=== PATIENT | male | born 1945 | race Caucasian/White ===

== ENCOUNTER 2022-02-14 23:42 | Inpatient (IN) | payer MEDICARE, OTHER ==
[~2022-02-14] VITALS: Ht 175.3 cm; Wt 54.0 kg
[2022-02-15] MEDS ORDERED: BLOOD SUGAR DIAGNOSTIC 1 EACH STRIP IN ONE (00:30)
[2022-02-15] MEDS ORDERED: MAGNESIUM HYDROXIDE 30 ML UDC PO PRN (00:30)
[2022-02-15] MEDS ORDERED: ACETAMINOPHEN 325 MG TABLET PO PRN (00:30)
--- NOTE | 2022-02-15 00:54 | NUR ---
ADMITTED THIS 76 YEARS OLD MALE FROM [facility] PATIENT WAS PLACED ON 5150 HOLD DUE TO UNABLE TO CARE FROM HIM FOUND HIM DISORGANIZED, CONFUSED FULL OF HIS OWN URINE AND FECES PATIENT ABLE TO GO TO BATHROOM WITH STAND BY ASSIST. UNSTEADY GAIT GET AGITATED EASILY Patient continues talking about he needs his MsCONTINE, NICOTINE PATCH AND VICODIN PATIENT REFUSED TO SIGN THE CONSENT PAPER ADVISEMENT EXPLAIN AND SERVE TO THE PATIENT WITH HOSPITAL HAND BOOK WILL CONTINUES TO MONITORN THE PATIENT FOR SAFETY AND FALL.
[2022-02-15] MEDS ORDERED: HYDR-3972 PO (01:04)
[2022-02-15] MEDS ORDERED: DIVA-78 PO (01:04)
[2022-02-15] MEDS ORDERED: IBUP-1953 PO (01:04)
[2022-02-15] MEDS ORDERED: IBUPROFEN 600 MG TABLET PO PRN (02:00)
[2022-02-15] MEDS: LORAZEPAM 0.5 MG TABLET PO PRN (03:13)
--- NOTE | 2022-02-15 06:37 | NUR ---
CALL THE FAMILY BROTHER ALEX AND INFORM REGARDING THE PATIENT ADMIT IN [facility] AND PROVIDE THE HOSPITAL PHONE NUMBER.
[2022-02-15 08:00] VITALS: BP 102/60
[2022-02-15] MEDS: HYDROCODONE/APAP 5/325MG TABLET PO SCH ×3 (09:00→17:08)
--- NOTE | 2022-02-15 10:00 | NUR ---
FABY Initial Discharge Plan: Patient stated that he currently resides at [address] [place] [address]; ([phone]). Patient wants to return back home upon dc. FABY will work with the MD, treatment team, and pt to help coordinate appropriate discharge.
--- NOTE | 2022-02-15 10:01 | NUR ---
SW Admit Source: Patient placed on a 5150 hold for GD. Patient was found disorganized and confused. Patient stated that he currently resides at [address] [place] [address]; ([phone]). Patient wants to return back home upon dc.
[2022-02-15] MEDS: ENSURE ENLIVE 237 ML LIQUID (VANILLA) PO SCH ×2 (12:32→17:10)
[2022-02-15 16:00] VITALS: BP 112/64
[2022-02-15 20:00] VITALS: BP 100/58
[2022-02-15] MEDS: QUETIAPINE FUMARATE 25 MG TABLET PO SCH (21:50)
[2022-02-15] MEDS: ZOLPIDEM TARTRATE 5 MG TABLET PO PRN (21:50)
[2022-02-15] MEDS: MIRTAZAPINE 15 MG TABLET PO SCH (21:50)
[2022-02-15 23:35] LABS: THYROID STIMULATING HORMONE 2.209 uIU/mL (0.358-3.74)
--- NOTE | 2022-02-16 03:41 | NUR ---
RN NOTES: Alert / orientated X2 Easily aggitaed. He will ask for water urinal medication and he will want it NOW!. Unsteady when anbulatin. Went to bed 10 PM slept well. Noted he would get up x@ to go to the bathroom then back to bed
[2022-02-16 08:00] VITALS: BP 113/80
[2022-02-16] MEDS: ENSURE ENLIVE 237 ML LIQUID (VANILLA) PO SCH ×3 (08:05→16:03)
[2022-02-16] MEDS: HYDROCODONE/APAP 5/325MG TABLET PO SCH ×3 (08:36→16:04)
--- NOTE | 2022-02-16 09:04 | NUR ---
Social Work Note/Substance Abuse Intervention: Patient was provided with a brief substance abuse intervention and referred to [facility] ([phone]), [facility] ([phone]), and [facility] ([phone]) for being positive for opiates, per doctor notes.
--- NOTE | 2022-02-16 11:03 | NUR ---
RN NOTES MED RECON REPORTED THAT PATIENT PREVIOUSLY TAKES DIVALPROEX 500MG PO BID. INFORMED DR. CABRAL IF HE WOULD LIKE TO CONTINUE MEDICATION; PER MD, INQUIRE W/ PATIENT IF MEDICATION IS BEING TAKEN FOR SEIZURE OR FOR PSYCH. PER PATIENT, HE IS TAKING MEDICATION FOR SEIZURE. DR. CABRAL DEFERRED DECISION TO ACCOUNT RESOLUTION SPECIALIST. CALLED DR. BERGER AND INFORMED ABOUT MED RECON FOR DIVALPROEX; PER MD, OK FOR PATIENT TO CONTINUE TAKING. ORDER NOTED.
[2022-02-16 13:36] LABS: CHOLESTEROL 148 mg/dL (<200); HDL CHOLESTEROL 57 mg/dL (40-60); LDL 70 mg/dL (0-99); TRIGLYCERIDES 197 mg/dL (30-150)
[2022-02-16 13:51] LABS: ALANINE AMINOTRANSFERASE 10 U/L (12-78); ALBUMIN 2.6 g/dL (3.4-5.0); ALKALINE PHOSPHATASE 87 U/L (46-116); ASPARTATE AMINOTRANSFERASE 11 U/L (15-37); BILIRUBIN,TOTAL 0.2 mg/dL (0.2-1.0); CALCIUM, SERUM 8.8 mg/dL (8.5-10.1); CARBON DIOXIDE 25 mmol/L (21-32); CHLORIDE 107 mmol/L (98-107); CREATININE 1.7 mg/dL (0.6-1.3); GLUCOSE 151 mg/dL (74-106); SODIUM SERUM 138 mmol/L (136-145); TOTAL PROTEIN, SERUM 5.7 g/dL (6.4-8.2); UREA NITROGEN, BLOOD 47 mg/dL (7-18)
--- NOTE | 2022-02-16 15:25 | NUR ---
RN NOTES SPOKE W/ PATIENT'S BROTHER, ALEX, AND WAS INFORMED THAT PATIENT DOES NOT HAVE HIS UPPER/LOWER DENTURES; BELONGINGS LIST DID NOT ACCOUNT FOR THE DENTURES.
[2022-02-16 16:01] VITALS: BP 110/59
[2022-02-16] MEDS: DIVALPROEX SODIUM 500 MG TABLET.DR PO SCH (16:03)
[2022-02-16] MEDS: QUETIAPINE FUMARATE 25 MG TABLET PO SCH ×2 (16:04→21:10)
--- NOTE | 2022-02-16 17:38 | NUR ---
RN NOTES SPOKE W/ EVELINA ([phone]), PATIENT'S DAUGHTER, AND PROVIDED W/ UPDATE/PROGRESS ON PATIENT; CURRENTLY SPEAKING W/ PATIENT ON PORTABLE PHONE.
[2022-02-16 20:00] VITALS: BP 118/62
[2022-02-16] MEDS: MIRTAZAPINE 15 MG TABLET PO SCH (21:10)
--- NOTE | 2022-02-17 00:13 | NUR ---
RN NOTES:REFUSED SKIN ASSESSMENT PT. REFUSED SKIN ASSESSMENT AND PHOTOS TAKEN, PER PT. MY SKIN IS FINE ,WHY YOU ARE BOTHERING ME, ENCOURAGED X 3 , RISKS AND BENEFITS, BUT PT. SLOPINGLY REFUSED, PT. BEHAVIOR UNCOOPERTIVE ANXIOUS , PARANOID .WILL CONTINUE WITH CARE.
--- NOTE | 2022-02-17 05:34 | NUR ---
RN NOTES:REFUSED SKIN ASSESSMENT PT. REFUSED SKIN ASSESSMENT AND PHOTOS TAKEN, PER PT. MY SKIN IS FINE ,WHY YOU ARE BOTHERING ME, ENCOURAGED X 3 , RISKS AND BENEFITS, BUT PT. STRONGLY REFUSED, PT. BEHAVIOR UNCOOPERTIVE ANXIOUS , PARANOID .WILL CONTINUE WITH CARE.
[2022-02-17] MEDS ORDERED: Z GUARD REMEDY 4 OZ OINT TP PRN (07:30)
[2022-02-17 08:00] VITALS: BP 139/96
[2022-02-17] MEDS: HYDROCODONE/APAP 5/325MG TABLET PO SCH ×3 (09:00→18:03)
[2022-02-17] MEDS: ENSURE ENLIVE 237 ML LIQUID (VANILLA) PO SCH ×3 (10:43→16:41)
[2022-02-17] MEDS: QUETIAPINE FUMARATE 25 MG TABLET PO SCH ×3 (11:00→21:18)
[2022-02-17] MEDS: DIVALPROEX SODIUM 500 MG TABLET.DR PO SCH ×2 (11:00→16:41)
[2022-02-17] MEDS: Z GUARD REMEDY 4 OZ OINT TP SCH (11:27)
[2022-02-17 16:00] VITALS: BP 92/62
--- NOTE | 2022-02-17 16:51 | NUR ---
VITAL SIGNS RECHECKED BEFORE [facility]ENESSA. MEDS GIVEN.BP 106/63,HEART RATE 71,POX 95%.PT. ALERT AND ORIENTED.IN BED AND CHEERFUL AT THIS TIME.SIDE RAILS UP.
--- NOTE | 2022-02-17 18:21 | NUR ---
VERY NEEDY,MINIBUS DRIVER LIGHT FREQ.WHILE IN DAY RM. VOMITED UP AFTERNOON MEDS AFSINK,THEN ASKING FOR A SODA,DIFFICULT TO INSTRUCT ON NEEDS.
--- NOTE | 2022-02-17 19:30 | NUR ---
GPS RN NOTE, RECEIVED PATIENT AWAKE AND IN BED, NO S/S OR COMPLAINTS OF PAIN AT THIS TIME. PATIENT IS DISPLAYING NO S/S OF APPARENT DISTRESS AT THIS TIME. PATIENT BREATHING IS UNLABORED WITH EQUAL RISE AND FALL OF THE CHEST. PATIENT IS ALERT AND ORIENTED X 1-2 ON ROOM AIR WITH A SPO2 99%. PATIENT IS COMPLIANT WITH MEDICATIONS, ANXIOUS, PARANOID, UNCOOPERATIVE AT TIMES, NEEDS REDIRECTION. PATIENT DENIES SUICIDAL AND HOMICIDAL IDEATIONS AT THIS TIME. PATIENT ASSISTED WITH TURNING AND REPOSITIONING Q2HR AND PRN FOR COMFORT AND CIRCULATION. PATIENT HAS NO NEEDS AT THIS TIME. PATIENT EDUCATED ON THE USE OF THE CALL RANGEL. PATIENT BED SIDE RAILS UP X 2 FOR SAFETY. PATIENT BED IS LOCKED, LOW, WITH BED ALARM ON. WILL CONTINUE TO MONITOR THIS PATIENT Q15 MINUTES WITH THE HELP OF STAFF TO MAINTAIN SAFETY.
[2022-02-17 20:00] VITALS: BP 101/64
[2022-02-17] MEDS: MIRTAZAPINE 15 MG TABLET PO SCH (21:18)
[2022-02-17] MEDS: ZOLPIDEM TARTRATE 5 MG TABLET PO PRN (22:58)
--- NOTE | 2022-02-17 22:58 | NUR ---
GPS RN NOTE, PATIENT HAS A COMPLAINT OF NOT BEING ABLE TO SLEEP AND IS REQUESTING AMBIEN AT THIS TIME. PATIENT VITAL SIGNS ARE STABLE. GAVE AMBIEN 5MG PO HS PRN ORDERED. WILL REASSESS FOR INSOMNIA AND I WILL CONTINUE TO MONITOR THIS PATIENT WITH THE HELP OF STAFF.
[2022-02-18] MEDS: LORAZEPAM 0.5 MG TABLET PO PRN (00:52)
--- NOTE | 2022-02-18 00:53 | NUR ---
GPS RN NOTE, PATIENT HAS A COMPLAINT OF FEELING ANXIOUS AND IS REQUESTING ATIVAN AT THIS TIME. PATIENT VITAL SIGNS ARE STABLE. GAVE ATIVAN 1 MG PO Q6HR PRN ORDERED. WILL REASSESS FOR ANXIETY AND I WILL CONTINUE TO MONITOR THIS PATIENT WITH THE HELP OF STAFF.
[2022-02-18 08:00] VITALS: BP 104/59
[2022-02-18] MEDS: ENSURE ENLIVE 237 ML LIQUID (VANILLA) PO SCH ×3 (09:18→17:15)
[2022-02-18] MEDS: Z GUARD REMEDY 4 OZ OINT TP SCH (09:19)
[2022-02-18] MEDS: risperiDONE 1 MG TABLET PO SCH ×2 (09:21→17:16)
[2022-02-18] MEDS: DIVALPROEX SODIUM 500 MG TABLET.DR PO SCH ×2 (09:21→17:16)
[2022-02-18] MEDS: HYDROCODONE/APAP 5/325MG TABLET PO SCH ×4 (09:21→18:14)
--- NOTE | 2022-02-18 12:48 | NUR ---
GPS/TN PT REFUSED MEDS OFFERED X3
[2022-02-18 16:00] VITALS: BP 100/69
[2022-02-18 21:13] VITALS: BP 114/67
[2022-02-18] MEDS: MIRTAZAPINE 15 MG TABLET PO SCH (21:24)
--- NOTE | 2022-02-18 21:30 | NUR ---
GPS RN NOTES PATIENT ONLY AGREED TO ONE PICTURE FOR SKIN ASSESSMENT; PATIENT GETTING AGGRESSIVE; PATIENT YELLING AND RESTLESS; PATIENT VERBALIZED OKAY FOR ONE PICTURE ONLY; CHARGE NURSE MADE AWARE;
[2022-02-19] MEDS: ENSURE ENLIVE 237 ML LIQUID (VANILLA) PO SCH ×3 (07:54→16:45)
[2022-02-19 08:00] VITALS: BP 147/77
[2022-02-19] MEDS: DIVALPROEX SODIUM 500 MG TABLET.DR PO SCH ×2 (08:36→16:46)
[2022-02-19] MEDS: risperiDONE 1 MG TABLET PO SCH ×2 (08:36→16:47)
[2022-02-19] MEDS: Z GUARD REMEDY 4 OZ OINT TP SCH (09:32)
--- NOTE | 2022-02-19 09:32 | NUR ---
[facility]: SW contacted [facility] ([phone]) in request for pt's daughter who is concerned that pt's dentures have been lost at [place]. FABY spoke with lockstitch front edge tape sewer and was transferred to security who will be able to locate this. Security stated they do not have it. SW will notify patient's daughter Myriam ([phone]).
--- NOTE | 2022-02-19 09:37 | NUR ---
FABY Family Contact: AFBY contacted patient's daughter Myriam ([phone]) and notified that this business writer contacted [facility] and they were unable to located pt's dentures.
--- NOTE | 2022-02-19 10:06 | NUR ---
Court Hearing Notification: SW contacted patient's daughter Myriam ([phone]) to contact of patient's 1450 hearing today. She is aware.
--- NOTE | 2022-02-19 11:45 | NUR ---
Court Hearing: Patient's court hearing for 1440 was today and it was upheld for GD.
[2022-02-19 16:00] VITALS: BP 100/58
[2022-02-19] MEDS: HYDROCODONE/APAP 5/325MG TABLET PO PRN (19:48)
[2022-02-19 19:57] VITALS: BP 145/66
[2022-02-19] MEDS: MIRTAZAPINE 15 MG TABLET PO SCH (21:15)
[2022-02-20 08:00] VITALS: BP 111/65
[2022-02-20] MEDS: ENSURE ENLIVE 237 ML LIQUID (VANILLA) PO SCH ×3 (08:31→17:19)
[2022-02-20] MEDS: HYDROCODONE/APAP 5/325MG TABLET PO PRN (09:36)
[2022-02-20] MEDS: DIVALPROEX SODIUM 500 MG TABLET.DR PO SCH ×2 (09:37→17:00)
[2022-02-20] MEDS: risperiDONE 1 MG TABLET PO SCH ×2 (09:37→17:00)
[2022-02-20] MEDS: Z GUARD REMEDY 4 OZ OINT TP SCH (09:51)
[2022-02-20 16:00] VITALS: BP 147/72
--- NOTE | 2022-02-20 18:49 | NUR ---
very needy and freq. requesting needed items from rn.med compliant.pacing halls freq.
--- NOTE | 2022-02-20 19:30 | NUR ---
RN OPENING NOTE PATIENT WALKING AROUND THE ROOM, NOT IN ANY APPARENT DISTRESS. BREATHING EVEN AND UNLABORED. PATIENT IS CONFUSED AND PARANOID. WANT TO CALL 911. PATIENT REDIRECTABLE. SAFETY MEASURES IMPLEMENTED. BED LOCKED AND IN LOWEST POSITION, SIDE RAILS UP. WILL MONITOR PATIENT CLOSELY.
[2022-02-20 19:50] VITALS: BP 101/68
[2022-02-20] MEDS: LORAZEPAM 0.5 MG TABLET PO PRN (20:46)
--- NOTE | 2022-02-20 20:46 | NUR ---
ATIVAN GIVEN D/T INCREASED AGITATION AND COMBATIVENESS. PATIENT REFUSING TO GIVE UNIT PHONE AND STATES THAT IT IS HIS. PATIENT CONTINUES TO CALL 911. SECURITY CALLED FOR HELP.
[2022-02-20] MEDS: MIRTAZAPINE 15 MG TABLET PO SCH (21:44)
[2022-02-20] MEDS ORDERED: risperiDONE 1 MG TABLET PO SCH (22:00)
--- NOTE | 2022-02-20 22:23 | NUR ---
AMBIEN GIVEN TO HELP PATIENT GO TO SLEEP AND REST
[2022-02-20] MEDS: ZOLPIDEM TARTRATE 5 MG TABLET PO PRN (22:33)
[2022-02-21 08:00] VITALS: BP 94/59
[2022-02-21] MEDS: HYDROCODONE/APAP 5/325MG TABLET PO PRN (08:28)
[2022-02-21] MEDS: ENSURE ENLIVE 237 ML LIQUID (VANILLA) PO SCH ×3 (08:28→17:06)
[2022-02-21] MEDS: DIVALPROEX SODIUM 500 MG TABLET.DR PO SCH ×2 (08:29→17:06)
[2022-02-21] MEDS: risperiDONE 1 MG TABLET PO SCH ×2 (08:29→17:08)
--- NOTE | 2022-02-21 08:29 | NUR ---
RN-CO: NORCO GIVEN FOR C/O BACK PAIN 06/27.
--- NOTE | 2022-02-21 09:18 | NUR ---
WOUND CARE CONSULT: LIMITED ASSESSMENT DUE TO PT ALLOWING ONLY ASSESSMENT OF RT HEEL WHICH IS INTACT. CURRENT NAJMA SCORE IS 17. DISCUSSED SKIN PROTECTION WITH NURSING STAFF. MD IN AGREEMENT WITH PLAN OF CARE. WILL SEE PRN.
[2022-02-21] MEDS: Z GUARD REMEDY 4 OZ OINT TP SCH (09:34)
[2022-02-21] MEDS: LORAZEPAM 0.5 MG TABLET PO PRN (10:03)
--- NOTE | 2022-02-21 10:06 | NUR ---
RN-CO: ATIVAN 1 MG PO FOR RESTLESSNESS.
--- NOTE | 2022-02-21 15:09 | NUR ---
Individual Counseling: SW met with pt. bedside to run group regarding positive coping mechanisms. However, pt. is sleeping and not abusable to verbal cues. SW will continue to monitor patient's ability to participate in millieu.
[2022-02-21 16:00] VITALS: BP 121/77
--- NOTE | 2022-02-21 19:40 | NUR ---
GPS RN NOTES RECEIVED SITTING ON DOM CHAIR BY [facility],WITH NORMAL BREATHING PATTERN,A/O X1,CONFUSED,TALKING TO SELF AT TIMES,FOLLOW SIMPLE DIRECTIONS,REDIRECTABLE,WILL CONTINUE TO MONITOR BEHAVIOR.
[2022-02-21 20:00] VITALS: BP 118/62
[2022-02-21] MEDS: MIRTAZAPINE 15 MG TABLET PO SCH (21:28)
[2022-02-21] MEDS ORDERED: risperiDONE 1 MG TABLET PO SCH (22:00)
[2022-02-22] MEDS: ZOLPIDEM TARTRATE 5 MG TABLET PO PRN (01:28)
--- NOTE | 2022-02-22 01:28 | NUR ---
GPS RN NOTES STILL AWAKE,SITTING IN THE DINING ROOM,HAVING SNACKS.AMBEN 5MG PO GIVEN ORDERED FOR SLEEP.
--- NOTE | 2022-02-22 06:55 | NUR ---
GPS RN NOTES NO SIGNIFICANT CHANGE IN BEHAVIOR
[2022-02-22 08:00] VITALS: BP 96/62
[2022-02-22] MEDS: DIVALPROEX SODIUM 500 MG TABLET.DR PO SCH ×2 (08:15→16:58)
[2022-02-22] MEDS: ENSURE ENLIVE 237 ML LIQUID (VANILLA) PO SCH ×3 (08:15→16:58)
[2022-02-22] MEDS: risperiDONE 1 MG TABLET PO SCH ×3 (08:15→21:14)
[2022-02-22] MEDS: Z GUARD REMEDY 4 OZ OINT TP SCH (09:11)
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
[2022-02-22 16:00] VITALS: BP 112/60
[2022-02-22 20:00] VITALS: BP 132/75
[2022-02-22] MEDS: MIRTAZAPINE 15 MG TABLET PO SCH (21:14)
--- NOTE | 2022-02-23 07:30 | NUR ---
RN OPENING NOTES RECEIVED PATIENT ON BED RESTING AND A/O X2. ON ROOM AIR TOLERATING WELL. NO SOB NOTED. NOT IN DISTRESS. PATIENT IS CALM AT THIS TIME. WITH NO IV ACCESS. SAFETY MEASURES IN PLACED. BED ON LOWEST LOCKED POSITION, SIDE RAILS UP X2. WILL CONTINUE TO MONITOR.
[2022-02-23 08:00] VITALS: BP 129/78
--- NOTE | 2022-02-23 08:20 | NUR ---
SNF Referral: FABY sent clinicals to Dayan feng from [facility] ([phone]) for placement option. FABY sent H & P, progress notes, and medication list.
[2022-02-23] MEDS: DIVALPROEX SODIUM 500 MG TABLET.DR PO SCH ×4 (08:26→17:05)
[2022-02-23] MEDS: risperiDONE 1 MG TABLET PO SCH ×3 (08:26→21:32)
[2022-02-23] MEDS: Z GUARD REMEDY 4 OZ OINT TP SCH (08:27)
[2022-02-23] MEDS: ENSURE ENLIVE 237 ML LIQUID (VANILLA) PO SCH ×3 (08:27→17:06)
--- NOTE | 2022-02-23 11:16 | NUR ---
FABY Family Contact: SW contacted patient's daughter Myriam ([phone]) to notify that pt is accepted at [facility]. She was agreeable of this placement.
--- NOTE | 2022-02-23 11:16 | NUR ---
SNF Contact: SW received a call from Dayan feng from [facility] ([phone]) who stated pt is accepted.
[2022-02-23 15:59] VITALS: BP 110/68
--- NOTE | 2022-02-23 18:29 | NUR ---
RN CLOSING NOTES PATIENT ON BED RESTING AND A/O X2. ON ROOM AIR TOLERATING WELL. NO SOB NOTED. NOT IN DISTRESS. PATIENT IS CALM AT THIS TIME. WITH NO IV ACCESS. DUE MEDS GIVEN. ABLE TO MAKE NEEDS KNOWN. SAFETY MEASURES IN PLACED. BED ON LOWEST LOCKED POSITION, SIDE RAILS UP X2. WILL ENDORSE TO NEXT SHIFT FOR ERNESTINE.
[2022-02-23 20:00] VITALS: BP 106/66
[2022-02-23] MEDS: MIRTAZAPINE 15 MG TABLET PO SCH (21:32)
[2022-02-24] MEDS: HYDROCODONE/APAP 5/325MG TABLET PO PRN (01:12)
--- NOTE | 2022-02-24 01:15 | NUR ---
GPS RN NOTE, PATIENT HAS A COMPLAINT OF CHRONIC UPPER AND LOWER BACK PAIN AT 4 OUT 10 ON THE PAIN SCALE AND IS REQUESTING NORCO AT THIS TIME. PATIENT VITAL SIGNS ARE STABLE. GAVE NORCO 5-325 1 TAB PO Q8HR PRN ORDERED. WILL REASSESS PAIN AND I WILL CONTINUE TO MONITOR THIS PATIENT WITH THE HELP OF STAFF.
[2022-02-24] MEDS: MAG HYDROX/AL HYDROX/SIMETH 30 ML UDC PO PRN (01:35)
--- NOTE | 2022-02-24 01:35 | NUR ---
GPS RN NOTE, PATIENT HAS A COMPLAINT OF INDIGESTION AND IS REQUESTING MAALOX AT THIS TIME. PATIENT VITAL SIGNS ARE STABLE. GAVE MAALOX 30ML UNIT DOSE PO Q4HR PRN ORDERED. WILL REASSESS FOR INDIGESTION AND I WILL CONTINUE TO MONITOR THIS PATIENT WITH THE HELP OF STAFF.
[2022-02-24 08:00] VITALS: BP 112/64
[2022-02-24] MEDS: risperiDONE 1 MG TABLET PO SCH ×3 (08:01→21:16)
[2022-02-24] MEDS: DIVALPROEX SODIUM 500 MG TABLET.DR PO SCH ×3 (08:01→16:25)
[2022-02-24] MEDS: ENSURE ENLIVE 237 ML LIQUID (VANILLA) PO SCH ×3 (08:02→17:13)
[2022-02-24] MEDS: Z GUARD REMEDY 4 OZ OINT TP SCH (09:24)
[2022-02-24 16:00] VITALS: BP 116/74
[2022-02-24 20:00] VITALS: BP 124/69
[2022-02-24] MEDS: MIRTAZAPINE 15 MG TABLET PO SCH (21:16)
[2022-02-25] MEDS: HYDROCODONE/APAP 5/325MG TABLET PO PRN ×2 (00:57→15:34)
[2022-02-25 08:00] VITALS: BP 103/55
[2022-02-25] MEDS: ENSURE ENLIVE 237 ML LIQUID (VANILLA) PO SCH ×3 (08:08→16:05)
[2022-02-25] MEDS: Z GUARD REMEDY 4 OZ OINT TP SCH (08:09)
[2022-02-25] MEDS: DIVALPROEX SODIUM 500 MG TABLET.DR PO SCH ×3 (08:09→16:02)
[2022-02-25] MEDS: risperiDONE 1 MG TABLET PO SCH ×3 (08:10→21:46)
[2022-02-25 08:11] LABS: EOSINOPHILS % (AUTO) 5.5 % (0.0-6.0); HEMATOCRIT 29 % (39-51); HEMOGLOBIN 9.3 g/dL (13.5-17.5); LYMPHOCYTES # (AUTO) 0.8 K/uL (0.8-4.8); MEAN CORPUSCULAR HGB CONC 32 g/dl (31.0-36.0); MEAN CORPUSCULAR VOLUME 73 fL (80-96); MONOCYTES # (AUTO) 0.3 K/uL (0.1-1.30); MONOCYTES % (AUTO) 11.4 % (2.0-12.0); NEUTROPHILS # (AUTO) 1.4 K/uL (1.8-8.9); NEUTROPHILS % (AUTO) 53.1 % (43.0-81.0); PLATELET COUNT (AUTO) 138 K/uL (150-450); RED BLOOD CELL COUNT(AUTO) 3.93 MIL/uL (4.5-6.0); WHITE BLOOD COUNT (AUTO) 2.7 K/uL (4.3-11.0)
[2022-02-25 08:45] LABS: CALCIUM, SERUM 8.9 mg/dL (8.5-10.1); CARBON DIOXIDE 27 mmol/L (21-32); CHLORIDE 107 mmol/L (98-107); CREATININE 1.3 mg/dL (0.6-1.3); GLUCOSE 79 mg/dL (74-106); MAGNESIUM 2.4 mg/dL (1.8-2.4); POTASSIUM 4.9 mmol/L (3.5-5.1); SODIUM SERUM 141 mmol/L (136-145); UREA NITROGEN, BLOOD 40 mg/dL (7-18)
[2022-02-25 09:57] LABS: EOSINOPHILS % (MANUAL) 8 % (0-4); LYMPHOCYTES % (MANUAL) 25 % (16-48); MONOCYTES % (MANUAL) 14 % (0-11.0); NEUTROPHILS % (MANUAL) 53 (42-76)
[2022-02-25 11:28] LABS: IRON, SERUM 33 ug/dl (50-175); TOTAL IRON BINDING CAPACITY 360 ug/dl (250-450)
--- NOTE | 2022-02-25 12:56 | NUR ---
RN-CO: NOTIFIED STAFF AND PEER TUTOR AND WILL PASS THE REPORT TO UPCOMING SHIFT , THAT PATIENT IS NPO AFTER MIDNIGHT FOR COMPLETE US.
--- NOTE | 2022-02-25 12:57 | NUR ---
RN-CO: PT REFUSED TO PROVIDE STOOL SPECIMEN.
[2022-02-25 16:00] VITALS: BP 128/65
[2022-02-25 20:18] VITALS: BP 110/69
[2022-02-25] MEDS: MIRTAZAPINE 15 MG TABLET PO SCH (21:43)
[2022-02-26] MEDS: MAG HYDROX/AL HYDROX/SIMETH 30 ML UDC PO PRN (00:55)
--- NOTE | 2022-02-26 07:07 | NUR ---
GPS RN NOTE: LEFT RIB CAGE AREA PAIN PATIENT C/O PAIN 310 LEFT RIB CAGE AREA, NO BRUISING NOTED. PRN TYLENOL 650 MG PO ADMINISTERED PER PATIENT REQUEST
[2022-02-26 08:00] VITALS: BP 102/64
[2022-02-26] MEDS: ENSURE ENLIVE 237 ML LIQUID (VANILLA) PO SCH ×3 (08:02→16:10)
[2022-02-26 08:06] LABS: IMMUNOGLOBULIN A, SERUM 160 mg/dL (61-437); IMMUNOGLOBULIN G, SERUM 1077 mg/dL (603-1613); IMMUNOGLOBULIN M, SERUM 46 mg/dL (15-143)
[2022-02-26] MEDS: Z GUARD REMEDY 4 OZ OINT TP SCH (08:59)
[2022-02-26] MEDS: DIVALPROEX SODIUM 500 MG TABLET.DR PO SCH ×3 (08:59→16:10)
[2022-02-26] MEDS: risperiDONE 1 MG TABLET PO SCH ×2 (08:59→16:10)
--- NOTE | 2022-02-26 09:27 | NUR ---
FABY Note: FABY spoke with patient regards to discharge plan. FABY notified that he is accepted at [facility]. He stated that he does not want to go to a nursing facility and wants to go back home.
--- NOTE | 2022-02-26 09:28 | NUR ---
FABY Family Contact: SW spoke with patient's daughter Myriam ([phone]) and stated that pt does not want to go to a nursing facility and wants to go back home. Daughter reported that she will speak to pt and see if he is agreeable of going to a nursing facility.
--- NOTE | 2022-02-26 09:51 | NUR ---
FABY Family Contact: FABY spoke with patient's daughter Myriam ([phone]) who stated she was unable to convince pt to go to a nursing facility. She stated to proceed with discharge back home.
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
--- NOTE | 2022-02-26 10:55 | NUR ---
FABY Coordination of Care: Patient referred for intake evaluation (psychiatry) at [facility] located at [address] [place] [address]: ([phone]) coordinated by officer of the day on March 05 at 11:30AM via telehealth.
--- NOTE | 2022-02-26 12:22 | NUR ---
GPS RN NOTE: T.O. ORDER FROM MARY KAY WILDE TRANSFER PT TO [facility] WITH DX IRON DEFICIENCY ANEMIA. NOTIFIED DR CABRAL PER DR. CABRAL T.O. ORDER DC HOLD CONTINUE WITH PSYCH MEDICATIONS DC PRN.
[2022-02-26 12:30] LABS: *ANA ANTI-CENTROMERE B AB <0.2 AI (0.0-0.9); *ANA ANTI-DNA(DS) AB, QN 2 IU/mL (0-9); *ANA ANTI-JO-1 <0.2 AI (0.0-0.9); *ANA ANTICHROMATIN ANTIBODY <0.2 AI (0.0-0.9); *ANA RNP ANTIBODIES <0.2 AI (0.0-0.9); *ANA SJOGREN'S ANTI-SS-A <0.2 AI (0.0-0.9); *ANA SJOGREN'S ANTI-SS-B <0.2 AI (0.0-0.9); *ANAANTI-SCLERODERMA-70 AB <0.2 AI (0.0-0.9); *ANASMITH AB <0.2 AI (0.0-0.9)
--- NOTE | 2022-02-26 13:24 | NUR ---
Transfer Note: Patient will transfer to medical floor due to Iron Deficiency Anemia. Dr. Vasquez was notified and hold will be discontinued. Patient will be discharged back home located at [address] [place] [address]; ([phone]) when stable. Patients daughter Myriam ([phone]) is involved. Patient referred for intake evaluation (psychiatry) at [facility] located at [address] [place] [address]: ([phone]) coordinated by officer of the day on March 05 at 11:30AM via telehealth.
[2022-02-26] MEDS ORDERED: SOD FERRIC GLUC 125 MG in IV NS 0.9% 100 ML IV SCH ×2 (14:00→20:30)
[2022-02-26 14:07] LABS: *SPE A/G RATIO 1.2 (0.7-1.7); *SPE ALPHA-1-GLOBULIN 0.2 g/dL (0.0-0.4); *SPE ALPHA-2-GLOBULIN 0.5 g/dL (0.4-1.0); *SPE BETA GLOBULIN 0.8 g/dL (0.7-1.3); *SPE M-SPIKE Not Observed g/dL (Not Observed)
[2022-02-26 16:00] VITALS: BP 115/62
--- NOTE | 2022-02-26 18:07 | NUR ---
PT DISCHARGED TO [facility] UNIT. PT WILL BE ADMITTED TO [facility] WITH DX OF IRON DEFICIENCY ANEMIA. PT ALERT AND ORIENTED X2. CALM AND COOPERATIVE. VSS. DENIES PAIN. DENIES SI/HI AT THIS TIME. DENIES A/V HALLUCINATIONS AT THIS TIME. NO ACUTE DISTRESS NOTED AT THIS TIME. DAUGHTER (EVELINA) CONTACTED TO INFORM OF TRANSFER. ALL BELONGINGS SIGNED AND RETURNED. MD AND PSYCHIATRIST AWARE. HOLD DC'd.
[2022-02-26] MEDS ORDERED: MIRT-90 PO (19:19)
[2022-02-26] MEDS ORDERED: MAG30ORA PO (19:19)
[2022-02-26] MEDS ORDERED: SOD62.5V IV (19:19)
[2022-02-26] MEDS ORDERED: ACET-868 PO (19:19)
[2022-02-26] MEDS ORDERED: ALLA266C2 TP ×2 (19:19)
[2022-02-26] MEDS ORDERED: RISP0.2515 PO ×2 (19:19)
[2022-02-26] MEDS ORDERED: MAGN400O6 PO (19:19)
[2022-02-26] MEDS ORDERED: LACT-246 PO (19:19)
[2022-02-26] MEDS ORDERED: ONDANSETRON HCL/PF 4 MG/2 ML VIAL IVP PRN (20:30)
[2022-02-26] MEDS ORDERED: ACETAMINOPHEN 325 MG TABLET PO PRN (20:30)
[2022-02-26] MEDS ORDERED: Z GUARD REMEDY 4 OZ OINT TP PRN (20:30)
[2022-02-26] MEDS ORDERED: MAGNESIUM HYDROXIDE 30 ML UDC PO PRN (20:30)
[2022-02-26] MEDS ORDERED: HYDROCODONE/APAP 5/325MG TABLET PO PRN (20:30)
[2022-02-27] MEDS ORDERED: DIVALPROEX SODIUM 500 MG TABLET.DR PO SCH (09:00)
[2022-03-01] MEDS ORDERED: FERR325T23 PO (10:28)
== END 2022-02-26 18:08 | disposition short-term general hospital (02) | DRG 885 ==
LOC: GPS 23:42
PROVIDERS: ADMIT Psychiatry & Neurology Psychiatry; ATTEND Internal Medicine
DX: F29 Unspecified psychosis not due to a substance or known physiological condition (principal); E43 Unspecified severe protein-calorie malnutrition; N17.9 Acute kidney failure, unspecified; N18.9 Chronic kidney disease, unspecified; D61.818 Other pancytopenia; G93.40 Encephalopathy, unspecified; R64 Cachexia; Z68.1 Body mass index [BMI] 19.9 or less, adult; F03.91 Unspecified dementia, unspecified severity, with behavioral disturbance; F41.9 Anxiety disorder, unspecified; D50.9 Iron deficiency anemia, unspecified; D72.821 Monocytosis (symptomatic); E88.09 Other disorders of plasma-protein metabolism, not elsewhere classified; F32.A Depression, unspecified; G40.909 Epilepsy, unspecified, not intractable, without status epilepticus; G89.4 Chronic pain syndrome; Z87.442 Personal history of urinary calculi; M19.90 Unspecified osteoarthritis, unspecified site; Z73.6 Limitation of activities due to disability; M62.81 Muscle weakness (generalized); D69.6 Thrombocytopenia, unspecified; F42.9 Obsessive-compulsive disorder, unspecified
CPT/HCPCS: 36415; 70450-TC; 76700-TC; 80048-TC; 80053-TC; 80061-TC; 80164-TC; 82550-TC; 82607-TC; 82728-TC; 82784; 82962-TC; 83540-TC; 83735-TC; 84155; 84165; 84443-TC; 85025-TC; 86225; 86235; 86334; 86431-TC; 86706; 86803; 87081-TC; 87340; 97116-TC; 97530-TC

== ENCOUNTER 2022-02-26 18:28 | Inpatient (IN) | payer MEDICARE, OTHER ==
[~2022-02-26] VITALS: Ht 172.7 cm; Wt 59.0 kg
[~2022-02-26 18:28] MED LIST: DIVA-78 PO; HYDR-3972 PO; IBUP-1953 PO
[2022-02-26] MEDS ORDERED: ACET-868 PO (19:19)
[2022-02-26] MEDS ORDERED: MAGN400O6 PO (19:19)
[2022-02-26] MEDS ORDERED: LACT-246 PO (19:19)
[2022-02-26] MEDS ORDERED: RISP0.2515 PO ×2 (19:19)
[2022-02-26] MEDS ORDERED: SOD62.5V IV (19:19)
[2022-02-26] MEDS ORDERED: ALLA266C2 TP ×2 (19:19)
[2022-02-26] MEDS ORDERED: MIRT-90 PO (19:19)
[2022-02-26] MEDS ORDERED: MAG30ORA PO (19:19)
--- NOTE | 2022-02-26 19:45 | NUR ---
MS RN NOTES PATIENT ON UNIT, PER PREVIOUS SHIFT ARRIVED 1835 FROM GPS UNIT; PATIENT A/OX2, RE-DIRECTABLE; BREATHING EVEN AND UNLABORED; NO SOB NOTED; TOLERATING ROOM AIR; NO IV ACCESS AT THIS TIME; UNABLE TO OBTAIN MUCH INFORMATION D/T PATIENT MENTAL STATUS/PSYCHOSIS; PATIENT UNCOOPERATIVE AND TENDS TO YELL WHEN UPSET; CHARGE NURSE AWARE; PATIENT ORIENTED TO STAFF AND TO UNIT; SAFETY PRECAUTIONS IN PLACE; CALL LIGHT WITHIN REACH; WILL CONT PLAN OF CARE
--- NOTE | 2022-02-26 19:52 | NUR ---
MS RN NOTES PATIENT REFUSING CARE. PATIENT DOES NOT WANT IV ACCESS, PATIENT EDUCATED ON COMPLIANCE THROUGHOUT HOSPITALIZATION, PATIENT STILL REFUSING; PATIENT ALSO REFUSING ID BAND TO BE PLACED ON WRIST AND/OR BED; PATIENT ANGRY AND UNCOOPERATIVE AND ANGRY; YELLING AT STAFF; THROWING URINAL AT INSTRUMENT PERSON; REFUSING VITALS TO BE TAKEN; PATIENT UNABLE TO PROVIDE MEDICAL HISTORY, HISTORY TAKEN FROM PREVIOUS CHART; PATIENT PREVIOUS GPS PATIENT; CHARGE NURSE MADE AWARE; WILL CONT TO MONITOR
[2022-02-26 20:00] VITALS: BP 99/49
--- NOTE | 2022-02-26 20:21 | NUR ---
MS RN NOTES AWAITING ADMITTING ORDERS FROM MD. CHARGE NURSE AWARE WILL CALL PSYCH UNIT TO TRANSFER ALL MEDICATIONS PER MD;
[2022-02-26] MEDS ORDERED: ACETAMINOPHEN 325 MG TABLET PO PRN (20:30)
[2022-02-26] MEDS ORDERED: ONDANSETRON HCL/PF 4 MG/2 ML VIAL IVP PRN (20:30)
[2022-02-26] MEDS ORDERED: MAGNESIUM HYDROXIDE 30 ML UDC PO PRN (20:30)
[2022-02-26] MEDS ORDERED: Z GUARD REMEDY 4 OZ OINT TP PRN (20:30)
--- NOTE | 2022-02-26 20:31 | NUR ---
MS RN NOTES PER CHARGE NURSE FAX MEDICATION SHEET TO PHARMACY; SPOKE WITH PHARMACY, THEY RECEIVED FAX, WILL INPUT ORDERS. PER PHARMACY, FERRLICIT WILL HAVE TO BE STARTED TOMORROW; CHARGE NURSE MADE AWARE; WILL CONT TO MONITOR
[2022-02-26] MEDS ORDERED: SOD FERRIC GLUC 125 MG in IV NS 0.9% 100 ML IV SCH (21:00)
--- NOTE | 2022-02-26 21:37 | NUR ---
MS RN NOTES SPOKE WITH BROTHER (ALEX) [phone], REGARDING PATIENT BEING TRANSFERRED TO ANOTHER UNIT IN THE HOSPITAL, BROTHER IS AWARE AND WAS INFORMED EARLIER THIS EVENING; BROTHER INFORMED ABOUT PATIENT CURRENT BEHAVIOR OF BEING UNCOOPERATIVE; BROTHER WILL SPEAK TO PATIENT IN AM; SPOKE WITH PATIENT REGARDING BROTHER, PATIENT CALMED DOWN A BIT BUT STILL REFUSING CARE AND MEDICATION; PATIENT DOES NOT WANT IV ACCESS; PATIENT YELLED AND STATED HE WANTS TO GO TO SLEEP; CHARGE NURSE MADE AWARE WILL CONT TO MONITOR;
[2022-02-26] MEDS: MIRTAZAPINE 15 MG TABLET PO SCH (21:40)
[2022-02-26] MEDS: risperiDONE 1 MG TABLET PO SCH (21:40)
--- NOTE | 2022-02-26 23:45 | NUR ---
MS RN NOTES ENDORSED PATIENT TO [facility].
[2022-02-27] MEDS: HYDROCODONE/APAP 5/325MG TABLET PO PRN ×2 (00:48→23:14)
--- NOTE | 2022-02-27 07:30 | NUR ---
MS RN OPENING NOTES RECEIVED PATIENT IN BED AWAKE, A/OX2, DISTRACTED DURING CONVERSATION. ON RA WITH NO S/SX OF RESP DISTRESS NOTED. NO PAIN VERBALIZED. PATIENT HAS NO IV ACCESS AT THIS TIME. CONTINUING TO REFUSE AND BECOMES AGITATED WHEN ASKED, WILL ATTEMPT AGAIN AT A LATER TIME. MD WAS NOTIFIED OF PATIENTS REFUSAL. SAFETY PRECAUTIONS IN PLACE: BED IN LOWEST POSITION, WHEELS LOCKED, SIDE RAILS UP X2, CALL LIGHT WITHIN REACH. WILL CONTINUE PLAN OF CARE
--- NOTE | 2022-02-27 07:30 | NUR ---
RN NOTES PATIENT REFUSED AM LAB DRAW. WILL ATTEMPT AGAIN AT A LATER TIME.
[2022-02-27 08:00] VITALS: BP 119/60
[2022-02-27] MEDS ORDERED: DIVALPROEX SODIUM 500 MG TABLET.DR PO SCH (09:00)
[2022-02-27] MEDS: risperiDONE 1 MG TABLET PO SCH ×3 (09:22→21:18)
[2022-02-27] MEDS: DIVALPROEX SODIUM 500 MG TABLET.DR PO SCH ×3 (09:55→17:55)
[2022-02-27] MEDS ORDERED: OLANZAPINE 10 MG VIAL IM PRN (10:00)
[2022-02-27] MEDS ORDERED: LORAZEPAM 1 MG TABLET PO PRN (10:00)
--- NOTE | 2022-02-27 11:01 | NUR ---
Transfer Note: Patient will transfer to medical floor due to Iron Deficiency Anemia. Dr. Vasquez was notified and hold will be discontinued. Patient will be discharged back home located at [address] [place] [address]; ([phone]) when stable. Patients daughter Myriam ([phone]) is involved. Patient referred for intake evaluation (psychiatry) at [facility] located at [address] [place] [address]: ([phone]) coordinated by officer of the day on March 05 at 11:30AM via telehealth.
--- NOTE | 2022-02-27 12:00 | NUR ---
RN NOTES PATIENT IS STILL REFUSING TO HAVE BLOOD DRAWN FOR LAB.
--- NOTE | 2022-02-27 13:15 | NUR ---
RN NOTES URINE SAMPLE COLLECTED. LAB CALLED FOR TIME STUDY CLERK.
--- NOTE | 2022-02-27 13:20 | NUR ---
RN NOTES PATIENT IS STILL REFUSING IV ACCESS. HE STATES, "THERE IS NO NEED FOR ME TO HAVE AN IV, I DON'T WANT IT."
[2022-02-27] MEDS: SOD FERRIC GLUC 125 MG in IV NS 0.9% 100 ML IV SCH ×2 (14:00→17:52)
[2022-02-27 16:10] LABS: BILIRUBIN,URINE NEGATIVE (NEGATIVE); COLOR,URINE YELLOW (YELLOW); LEUKOCYTE ESTERASE ,URINE NEGATIVE (NEGATIVE); NITRITE, URINE NEGATIVE (NEGATIVE); PH,URINE 7.5 (5.0-8.0); PROTEIN,URINE NEGATIVE (NEGATIVE); UGLUCOSE NEGATIVE (NEGATIVE); UROBILINOGEN,URINE 0.2 EU/dL (0.2)
[2022-02-27 16:36] LABS: EOSINOPHILS % (AUTO) 2.8 % (0.0-6.0); HEMATOCRIT 28 % (39-51); HEMOGLOBIN 8.8 g/dL (13.5-17.5); LYMPHOCYTES # (AUTO) 0.4 K/uL (0.8-4.8); LYMPHOCYTES % (AUTO) 17.9 % (20.0-44.0); MEAN CORPUSCULAR HGB CONC 32 g/dl (31.0-36.0); MEAN CORPUSCULAR VOLUME 74 fL (80-96); MONOCYTES # (AUTO) 0.3 K/uL (0.1-1.30); MONOCYTES % (AUTO) 12.1 % (2.0-12.0); NEUTROPHILS # (AUTO) 1.6 K/uL (1.8-8.9); NEUTROPHILS % (AUTO) 66.2 % (43.0-81.0); PLATELET COUNT (AUTO) 137 K/uL (150-450); RED BLOOD CELL COUNT(AUTO) 3.75 MIL/uL (4.5-6.0); WHITE BLOOD COUNT (AUTO) 2.4 K/uL (4.3-11.0)
[2022-02-27 16:49] LABS: CALCIUM, SERUM 8.5 mg/dL (8.5-10.1); CREATININE 1.3 mg/dL (0.6-1.3); MAGNESIUM 2.7 mg/dL (1.8-2.4); PHOSPHORUS 4.3 mg/dL (2.5-4.9); POTASSIUM 4.8 mmol/L (3.5-5.1)
--- NOTE | 2022-02-27 17:00 | NUR ---
RN NOTES LABS DRAWN
[2022-02-27 17:40] LABS: BAND % (MANUAL) 3 % (0.0-5.0); EOSINOPHILS % (MANUAL) 1 % (0-4); LYMPHOCYTES % (MANUAL) 20 % (16-48); MONOCYTES % (MANUAL) 13 % (0-11.0); NEUTROPHILS % (MANUAL) 63 (42-76)
--- NOTE | 2022-02-27 18:00 | NUR ---
RN NOTES IV ACCESS L FA G#20, INTACT AND FLUSHING WELL
--- NOTE | 2022-02-27 18:45 | NUR ---
RN CLOSING NOTES PATIENT IN BED, CALM AND COOPERATIVE. FORGETFUL AT TIMES AND NEEDS REDIRECTING. WAS ABLE TO ESTABLISH IV ACCESS L FA G#20, INTACT AND PATENT. GAVE FIRST DOSE OF FERRELECIT 125 MG IV. PATIENT TOOK ALL PO MEDICATIONS TODAY. SAFETY MEASURES IN PLACE WITH CALL LIGHT WITHIN REACH AND BED ALARM ON. WILL ENDORSE TO CHEST PAINTING LEADER NURSE FOR ERNESTINE
--- NOTE | 2022-02-27 19:42 | NUR ---
RN OPENING NOTES PATIENT IN BED, CALM AND COOPERATIVE. FORGETFUL AT TIMES AND NEEDS REDIRECTING. WAS ABLE TO ESTABLISH IV ACCESS LFA G#20, INTACT AND PATENT. FIRST DOSE OF FERRELECIT 125 MG IV GIVEN DURING DAY SHIFT. NEED TO COLLECT STOOL SAMPLE WILL TRY TONIGHT.SAFETY MEASURES IN PLACE WITH CALL LIGHT WITHIN REACH AND BED ALARM ON. WILL CONTINUE TO MONITOR.
[2022-02-27 20:00] VITALS: BP 166/85
--- NOTE | 2022-02-27 20:30 | NUR ---
MS RN NOTES STOOL SAMPLE COLLECTED PLACED IN [facility] LAB CALLED FOR CONCRETE BUSTER OPERATOR.
[2022-02-27] MEDS: MIRTAZAPINE 15 MG TABLET PO SCH (21:18)
--- NOTE | 2022-02-27 22:11 | NUR ---
MS RN NOTES PT TOOK ALL SCHEDULED MEDICATIONS ORDERED. TOLERATED WELL. CURRENTLY SPEAKING ON THE PHONE WITH HIS SISTER. PT CALM IN A GOOD MOOD. PER PT " I WANT MY NORCO BUT NOT RIGHT NOW I DON'T WANT TO OD CAN YOU GIVE IT TO ME AFTER AN HOUR FROM THE TIME YOU GAVE ME THE OTHER PILLS?" WILL CONTINUE TO MONITOR PT AND PROVIDE PAIN MEDICATION IF REQUIRED STILL IN A HOUR.
--- NOTE | 2022-02-27 23:19 | NUR ---
MS RN NOTES PT HAVING GENERALIZED PAIN PRN NORCO GIVEN AND TOLERATED WELL. ALL NEEDS MET AT THIS TIME. WILL CONTINUE TO MONITOR.
--- NOTE | 2022-02-28 01:05 | NUR ---
MS RN NOTES PT AGITATED WALKING BACK AND FORTH TAKING ALL THE GLOVES AND SPREADING THEM ON HIS BED TAKING PAPER TOWELS OUT OF THE DISPENSER AND STUFFING THEM INTO HIS WATER PITCHER AND HUMMING VERY LOUDLY. MAKING A PILE ON HIS BED WITH ALL HIS BELONGING AND ANYTHING HE FINDS IN THE ROOM. PRN ATIVAN GIVEN FOR AGITATION. TOLERATED WELL. ALL NEED MET AT THIS TIME. CALL LIGHT WITHIN REACH. TABLE WITHIN REACH. WILL CONTINUE TO MONITOR.
--- NOTE | 2022-02-28 01:30 | NUR ---
MS RN NOTES PT FOUND TO HAVE TAKEN ROOMMATES BELONGING INCLUDING CELLPHONE AND SHOES AND OTHER CLOTHING ITEMS AND PLACED THEM ON HIS SIDE OF THE ROOM REFUSING TO GIVE THEM BACK AND THEN STATING " I DIDN'T STEAL ANYTHING, EVERONE JUST NEEDS TO RELAX I'VE BEEN TRYING TO GIVE THEM BACK BUT YOU WONT LET ME" PT CONTINUES TO WONDER AROUND THE HALLWAY. DESPITE REDIRECTION. WILL SET UP OUTSIDE PT ROOM FOR CLOSE MONITORING. INFORMED CHARGE NURSE MARIBELL REGARDING PTS BEHAVIOR.
--- NOTE | 2022-02-28 02:35 | NUR ---
MS RN NOTES PT TRANSFERRED TO ROOM #327-1 CLOSER TO THE NURSING STATION. ALL NEEDS MET AT THIS TIME WILL. CONTINUE TO MONITOR.
--- NOTE | 2022-02-28 06:43 | NUR ---
RN CLOSING NOTES PATIENT IN BED, CALM AND COOPERATIVE. FORGETFUL AT TIMES AND NEEDS REDIRECTING. FIRST DOSE OF FERRELECIT 125 MG IV GIVEN DURING DAY SHIFT. STOOL SAMPLE COLLECTED .SAFETY MEASURES IN PLACE WITH CALL LIGHT WITHIN REACH AND BED ALARM ON. WILL CONTINUE TO MONITOR.
--- NOTE | 2022-02-28 06:57 | NUR ---
RN OPENING NOTES UPON MORNING ROUNDS FOUND PATIENT ON THE FLOOR. PATIENT WAS ASSESSED AND ASSISTED BACK TO BED. VITALS UPON ASSESSMENT BP 119/54 O2 SAT 100 HR 86, NO VISIBLE INJURIES NO COMPLAINTS OF PAIN. MD NOTIFIED, NNO. PATIENT IS A/O X2. PATIENT IS FORGETFUL AT TIMES AND NEEDS REDIRECTING. PATIENT HAD NONSKID SOCKS ON. PATIENT HAS IV ACCESS LFA G#20, INTACT AND PATENT. SAFETY MEASURES IN PLACE WITH SITTER ORDERED AND NOW AT BEDSIDE, BED LOW LOCKED CALL LIGHT WITHIN REACH AND BED ALARM ON. WILL CONTINUE TO MONITOR.
[2022-02-28] MEDS: risperiDONE 1 MG TABLET PO SCH ×3 (08:19→21:54)
[2022-02-28] MEDS: DIVALPROEX SODIUM 500 MG TABLET.DR PO SCH ×3 (08:19→16:05)
[2022-02-28 09:16] VITALS: BP 111/55
[2022-02-28 11:15] LABS: OCCULT BLOOD STOOL NEGATIVE (NEGATIVE)
[2022-02-28 12:45] LABS: BASOPHILS % (AUTO) 0.7 % (0.0-2.0); EOSINOPHILS % (AUTO) 3.1 % (0.0-6.0); HEMATOCRIT 25 % (39-51); HEMOGLOBIN 8.1 g/dL (13.5-17.5); LYMPHOCYTES # (AUTO) 0.4 K/uL (0.8-4.8); LYMPHOCYTES % (AUTO) 14.3 % (20.0-44.0); MEAN CORPUSCULAR HGB CONC 32 g/dl (31.0-36.0); MEAN CORPUSCULAR VOLUME 74 fL (80-96); MONOCYTES # (AUTO) 0.3 K/uL (0.1-1.30); MONOCYTES % (AUTO) 10.3 % (2.0-12.0); NEUTROPHILS # (AUTO) 2.2 K/uL (1.8-8.9); NEUTROPHILS % (AUTO) 71.6 % (43.0-81.0); PLATELET COUNT (AUTO) 140 K/uL (150-450); RED BLOOD CELL COUNT(AUTO) 3.41 MIL/uL (4.5-6.0)
[2022-02-28 13:10] LABS: CALCIUM, SERUM 8.3 mg/dL (8.5-10.1); CREATININE 1.3 mg/dL (0.6-1.3); POTASSIUM 4.2 mmol/L (3.5-5.1)
[2022-02-28] MEDS: SOD FERRIC GLUC 125 MG in IV NS 0.9% 100 ML IV SCH (14:00)
[2022-02-28 14:08] LABS: PROSTATE SPECIFIC ANTIGEN SCR 1.9 ng/mL (0.00-4.00)
[2022-02-28 17:02] VITALS: BP 122/76
--- NOTE | 2022-02-28 18:30 | NUR ---
RN CLOSING NOTES PATIENT IN BED, CALM AND COOPERATIVE. FORGETFUL AT TIMES AND NEEDS REDIRECTING, SITTER AT BEDSIDE. PATIENT IS BREATHING EVENLY AND NONLABORED ON ROOM AIR. NO SIGNS OF DISTRESS NOTED. PATIENT NOTED WITH IV ACCESS L FA G#20, INTACT AND PATENT. ALL MEDICATIONS GIVEN ORDERED. NO COMPLAINTS OF PAIN OR DISOMFORT DURING SHIFT. SAFETY MEASURES IN PLACE WITH CALL LIGHT WITHIN REACH AND BED ALARM ON. WILL ENDORSE TO ONCOMING SHIFT
[2022-02-28 20:00] VITALS: BP 119/65
[2022-02-28] MEDS: MIRTAZAPINE 15 MG TABLET PO SCH (21:54)
--- NOTE | 2022-03-01 05:52 | NUR ---
MS RN NOTES PT REFUSED TO HAVE AM LABS DRAWN. EXPLAINED TO PT IMPORTANCE OF BLOOD DRAW IN HIS POC BUT PT STILL REFUSED. WILL CONTINUE TO MONITOR
--- NOTE | 2022-03-01 06:14 | NUR ---
MS RN NOTES AWAKE & RESPONSIVE. NOT IN ANY DISTRESS. NO SOB NOTED.DENIES ANY PAIN OR DISCOMFORT AT THIS TIME. WITH IV-HL PATENT & INTACT. KEPT ON NPO P MN. MONITORED ACCORDINGLY WITH SITTER AT BEDSIDE. CALL LIGHT WITHIN REACH. BED IN LOWEST POSITION. SR UP X 3 WITH BED ALARM ON FOR SAFETY. WILL ENDORSE TO NEXT SHIFT.
--- NOTE | 2022-03-01 07:50 | NUR ---
ms rn received on bed, awake,alert.oriented x 2,not in any form of distress, respirations even and unlabored,no sob noted, patient w/ sitter for comfort and safety, denies pain at this time, all needs attended.
--- NOTE | 2022-03-01 08:30 | NUR ---
ms blancas breakfast served,due meds given,tolerated well.
[2022-03-01] MEDS ORDERED: IV NS 0.9% 250 ML IV ONE (08:50)
[2022-03-01] MEDS ORDERED: IOHEXOL-300 100 ML VIAL IV ONE (08:50)
[2022-03-01 09:43] LABS: BASOPHILS % (AUTO) 0.9 % (0.0-2.0); EOSINOPHILS % (AUTO) 4.5 % (0.0-6.0); HEMATOCRIT 25 % (39-51); HEMOGLOBIN 8.1 g/dL (13.5-17.5); LYMPHOCYTES # (AUTO) 0.4 K/uL (0.8-4.8); LYMPHOCYTES % (AUTO) 19.7 % (20.0-44.0); MEAN CORPUSCULAR HGB CONC 32 g/dl (31.0-36.0); MEAN CORPUSCULAR VOLUME 74 fL (80-96); MONOCYTES # (AUTO) 0.3 K/uL (0.1-1.30); MONOCYTES % (AUTO) 14.8 % (2.0-12.0); NEUTROPHILS # (AUTO) 1.2 K/uL (1.8-8.9); NEUTROPHILS % (AUTO) 60.1 % (43.0-81.0); PLATELET COUNT (AUTO) 133 K/uL (150-450); RED BLOOD CELL COUNT(AUTO) 3.38 MIL/uL (4.5-6.0); WHITE BLOOD COUNT (AUTO) 2.1 K/uL (4.3-11.0)
[2022-03-01 09:52] LABS: CALCIUM, SERUM 8.1 mg/dL (8.5-10.1); CARBON DIOXIDE 25 mmol/L (21-32); CHLORIDE 107 mmol/L (98-107); CREATININE 1.1 mg/dL (0.6-1.3); GLUCOSE 78 mg/dL (74-106); POTASSIUM 4.6 mmol/L (3.5-5.1); SODIUM SERUM 137 mmol/L (136-145); UREA NITROGEN, BLOOD 30 mg/dL (7-18)
[2022-03-01] MEDS ORDERED: FERR325T23 PO (10:28)
[2022-03-01] MEDS: DIVALPROEX SODIUM 500 MG TABLET.DR PO SCH ×3 (10:36→17:33)
[2022-03-01] MEDS: risperiDONE 1 MG TABLET PO SCH ×2 (10:36→17:33)
[2022-03-01 11:17] LABS: BAND % (MANUAL) 4 % (0.0-5.0); EOSINOPHILS % (MANUAL) 4 % (0-4); LYMPHOCYTES % (MANUAL) 18 % (16-48); MONOCYTES % (MANUAL) 8 % (0-11.0); NEUTROPHILS % (MANUAL) 66 (42-76)
--- NOTE | 2022-03-01 13:32 | NUR ---
APS Contact: SW received a call from APS family service caseworker Bruna ([phone]) and wanted updates on pt's current status and discharge plan. SW explained that pt was alert and oriented x3 when in the psych unit but now is transferred to medical floor and would need to follow up with family service caseworker. SW notified hospital has offered pt nursing facility and pt has denied.
[2022-03-01] MEDS: SOD FERRIC GLUC 125 MG in IV NS 0.9% 100 ML IV SCH (16:26)
--- NOTE | 2022-03-01 17:00 | NUR ---
ms rn patient to be d/c in [facility], report given to frederic, but patient has covid result, spacimen sent, waiting for result. transportatyion is waiting/ standby.
--- NOTE | 2022-03-01 19:16 | NUR ---
ms rn on bed,all needs attended.
--- NOTE | 2022-03-01 19:25 | NUR ---
ms rn covid result came negative, patient was discharge,all needs attended
== END 2022-03-01 19:30 | DRG 808 ==
LOC: MED 18:28 → TELE 02-28 03:57 → MED 02-28 08:04
PROVIDERS: ADMIT Internal Medicine; ATTEND Internal Medicine
DX: D61.818 Other pancytopenia (principal); E43 Unspecified severe protein-calorie malnutrition; F23 Brief psychotic disorder; N17.9 Acute kidney failure, unspecified; R64 Cachexia; Z68.1 Body mass index [BMI] 19.9 or less, adult; N13.30 Unspecified hydronephrosis; D50.9 Iron deficiency anemia, unspecified; F41.9 Anxiety disorder, unspecified; F32.A Depression, unspecified; F29 Unspecified psychosis not due to a substance or known physiological condition; D72.821 Monocytosis (symptomatic); E88.09 Other disorders of plasma-protein metabolism, not elsewhere classified; G89.4 Chronic pain syndrome; N18.9 Chronic kidney disease, unspecified; Z79.899 Other long term (current) drug therapy; Z73.6 Limitation of activities due to disability; K83.8 Other specified diseases of biliary tract; N20.0 Calculus of kidney; N28.1 Cyst of kidney, acquired; Z20.822 Contact with and (suspected) exposure to COVID-19
CPT/HCPCS: 36415; 80048-TC; 82272-TC; 83735-TC; 84100-TC; 84153-TC; 84154-TC; 85025-TC; 87081-TC; G0378; J2916; J7030; J7050; Q9967

== ENCOUNTER 2022-03-16 12:20 | Inpatient (IN) | payer MEDICARE, OTHER ==
[~2022-03-16] VITALS: Ht 165.1 cm; Wt 60.3 kg
[~2022-03-16 12:20] MED LIST changes: +ACET-868 PO; +ALLA266C2 TP; +FERR325T23 PO; +LACT-246 PO; +MAG30ORA PO; +MAGN400O6 PO; +MIRT-90 PO; +RISP0.2515 PO; +SOD62.5V IV
--- NOTE | 2022-03-16 12:26 | NUR ---
TO ER BED 13, [facility], SENT BY [facility] FOR AGITATION, FURTHER EVAL TO ADJUST PSYCH MEDS, AAOX3, BREATHING EVEN AND NON LABORED, COOPERATIVE, AWAITING MD ORDERS
--- NOTE | 2022-03-16 13:12 | NUR ---
RAUDEL KIDD CALLED TO UPDATE INSURANCE
[2022-03-16 13:27] LABS: BILIRUBIN,URINE NEGATIVE (NEGATIVE); COLOR,URINE YELLOW (YELLOW); LEUKOCYTE ESTERASE ,URINE NEGATIVE (NEGATIVE); NITRITE, URINE NEGATIVE (NEGATIVE); PROTEIN,URINE NEGATIVE (NEGATIVE); UGLUCOSE NEGATIVE (NEGATIVE); UROBILINOGEN,URINE 0.2 EU/dL (0.2)
[2022-03-16 13:30] LABS: BASOPHILS % (AUTO) 0.6 % (0.0-2.0); EOSINOPHILS % (AUTO) 4.2 % (0.0-6.0); HEMATOCRIT 25 % (39-51); HEMOGLOBIN 8.1 g/dL (13.5-17.5); LYMPHOCYTES # (AUTO) 0.7 K/uL (0.8-4.8); LYMPHOCYTES % (AUTO) 12.9 % (20.0-44.0); MEAN CORPUSCULAR HGB CONC 32 g/dl (31.0-36.0); MEAN CORPUSCULAR VOLUME 80 fL (80-96); MONOCYTES # (AUTO) 0.6 K/uL (0.1-1.30); MONOCYTES % (AUTO) 11.4 % (2.0-12.0); NEUTROPHILS # (AUTO) 3.6 K/uL (1.8-8.9); NEUTROPHILS % (AUTO) 70.9 % (43.0-81.0); PLATELET COUNT (AUTO) 222 K/uL (150-450); RED BLOOD CELL COUNT(AUTO) 3.17 MIL/uL (4.5-6.0)
[2022-03-16 13:36] LABS: CALCIUM, SERUM 8.8 mg/dL (8.5-10.1); CARBON DIOXIDE 24 mmol/L (21-32); CHLORIDE 107 mmol/L (98-107); CREATININE 1.7 mg/dL (0.6-1.3); GLUCOSE 91 mg/dL (74-106); SODIUM SERUM 139 mmol/L (136-145); UREA NITROGEN, BLOOD 43 mg/dL (7-18)
[2022-03-16 13:44] LABS: ACETAMINOPHEN 0 ug/ml (10-30); ALANINE AMINOTRANSFERASE 43 U/L (12-78); ALBUMIN 3.3 g/dL (3.4-5.0); ALCOHOL, BLOOD < 3 mg/dL (0-0); ALKALINE PHOSPHATASE 157 U/L (46-116); ASPARTATE AMINOTRANSFERASE 25 U/L (15-37); BILIRUBIN,TOTAL 0.2 mg/dL (0.2-1.0); TOTAL PROTEIN, SERUM 6.7 g/dL (6.4-8.2)
--- NOTE | 2022-03-16 13:58 | NUR ---
COVID SWAB DONE AND SENT TO LAB
--- NOTE | 2022-03-16 16:50 | NUR ---
GOT BED 216A
--- NOTE | 2022-03-16 17:16 | NUR ---
JOVANNI YUSUF [phone] IN [place] WILL BE HERE AFTER
--- NOTE | 2022-03-16 19:24 | NUR ---
SEEN BY PINKY CLINICIAN
--- NOTE | 2022-03-16 19:55 | NUR ---
REPORT GIVEN TO GPS RN
--- NOTE | 2022-03-16 19:58 | NUR ---
PT TO GPS VIA WHEELCHAIR WITH EMT.
--- NOTE | 2022-03-16 19:58 | NUR ---
PT IS RESTING COMFORTABLY IN BED, WARM BLANKETS PROVIDED. DENIES ANY PAIN AT THIS TIME BUT IS CONFUSED TO WHY HE IS IN THE HOSPITAL TODAY. WILL CONTINUE TO MONITOR.
[2022-03-16 20:00] VITALS: BP 124/66
[2022-03-16] MEDS ORDERED: MAG HYDROX/AL HYDROX/SIMETH 30 ML UDC PO PRN (20:30)
[2022-03-16] MEDS ORDERED: MAGNESIUM HYDROXIDE 30 ML UDC PO PRN (20:30)
[2022-03-16] MEDS ORDERED: ACETAMINOPHEN 325 MG TABLET PO PRN (20:30)
[2022-03-16] MEDS ORDERED: BLOOD SUGAR DIAGNOSTIC 1 EACH STRIP IN ONE (21:00)
[2022-03-16] MEDS: LORAZEPAM 1 MG TABLET PO PRN (21:36)
--- NOTE | 2022-03-16 21:39 | NUR ---
RN NOTES PT. C/ O FEELING VERY ANXIOUS , RESTLESS YELLING UNCOOPERTIVE , NONREDIRECTABLE, LOUD HYPERVERBAL PRN ATIVAN 1 MG PO GIVEN , WILL CONTINUE TO MONITOR.
--- NOTE | 2022-03-16 22:08 | NUR ---
RN NOTES : REFUSED SKIN ASSESSMENT PT. REFUSED SKIN ASSESSMENT AND PICTURES , PT. BEHAVIOR UNCOOPERTIVE , UNPREDICTABLE NONREDIRECTABLE, LOUD HYPERVERBAL , ENCOURAGED RISKS AND BENEFITS EXPLINED BUT PT. STRONGLY REFUSED ,PER PT. MY SKIN IS FINE , WILL CONTINUE TO MONITOR.
[2022-03-16] MEDS: HYDROCODONE/APAP 5/325MG TABLET PO PRN (23:31)
--- NOTE | 2022-03-17 00:02 | NUR ---
RN NOTES : ADMISSION NOTES: ADMITTED THIS 76 Y/O MALE PATIENT ADMIT FROM [facility],ED / INTIALLY FROM [facility], ADMITTED TO GPS ON 5150 HOLD, PER HOLD GD, INCREASED AGITATION ,ANXIOUS ,RESTLESS, VERBALLY ABUSING, THE STAFF AT FACILITY ,UNPREDICTABLE. ,UPON FACE TO FACE ASSESSMENT PATIENT IS A&O X 1,2 UNCOOPERTIVE,UNPREDICTABLE, AGGRESSIVE, HYPERVERBAL , NEEDY DEMENDING DISORGNIZED, FORGETFUL,DELUSIONAL ,DISHELVED ,EASILY AGITATED , VERY POOR HYGINE , DENIES SI /HI AT THIS TIME, PT. IS POOR HISTORIAN, POOR INSIGHT ,POOR JUDGEMENT , BOTH MD AWARE AND NOTIFIED OF THE ADMISSION, BELONGINGS CONTRABAND WERE DONE , PT. REFUSED TO SIGNS ADMISSION CONSENT PAPERS DUE TO CONFUSED /DISORGNIZED, REFUSED SKIN ASSESSMENT, ENCOURAGED PT. STRONGLY REFUSED , ENCOURAGED BUT PT. STILL REFUSED, PT. IS POOR HISTORIAN, POOR INSIGHT ,POOR JUDGEMENT , BOTH MD AWARE AND NOTIFIED OF THE ADMISSION, BELONGINGS CONTRABAND WERE DONE ,ENCOURAGED PT. TO TAKE SHOWER, PT. RIGHTS DISCUSS BY TYPIST , PROVIDE THE PT. WITH HANDBOOK, AND MEDICATIONS GUIDE, ENVIRONMENTAL SAFETY CHECK DONE, ENCOURAGED PT. VERBALIZED ANY FEELING CONCERN TO STAFF, ORIENT TO UNIT POLICY, NO ACUTE DISTRESS NOTED,VITAL SIGNS WNL ,DENIES ANY PAIN AT THIS TIME,WILL CONTINUE TO MONITOR FOR Q15 SAFETY AND BEHAVIOR.
[2022-03-17 00:09] VITALS: BP 125/72
--- NOTE | 2022-03-17 06:25 | NUR ---
RN NOTES: PLACE CALLED PT. CLEVELAND MOELLER, , REGARDING ABOUT PT. ADMIT TO [facility] .
--- NOTE | 2022-03-17 06:37 | NUR ---
RN NOTES: RECEIVED PATIENT LAYING ON BED, EASILY AGITAED, GUARDED, SUSPICIOUS, DISORGANIZED, PARANOID, TALKING TO SELF, NEEDS FREQUENTLY REDIRECTIONS, NO S/S OF DISTRESS. MED COMPLY IN MEDICAL ASSISTANT . WILL CONTINUE TO MONITOR Q15 FOR MOOD, SAFETY AND BEHAVIOR.
--- NOTE | 2022-03-17 06:42 | NUR ---
RN NOTES: PATIENT LAYING ON BED, EASILY AGITAED, GUARDED, SUSPICIOUS, DISORGANIZED, PARANOID, TALKING TO SELF, NEEDS FREQUENTLY REDIRECTIONS, NO S/S OF DISTRESS. MED COMPLY IN FRUIT AND VEGETABLE PACKER . WILL CONTINUE TO MONITOR Q15 FOR MOOD, SAFETY AND BEHAVIOR.
[2022-03-17 08:00] VITALS: BP 131/81
[2022-03-17] MEDS: ENSURE ENLIVE CHOC 237 ML CAN PO SCH ×2 (08:17→17:34)
--- NOTE | 2022-03-17 09:00 | NUR ---
RECEIVED PATIENT RESTING IN HIS BED. A/OX2. NO S/S OF ACUTE DISTRESS NOTED,EASILY GETS IRRITATED. AMBULATORY DAILY MEDS COMPLIANT ALL NEEDS ATTENDED AND ANTICIPATED. SAFETY PRECAUTIONS IN PLACE. WILL CONTINUE TO MONITOR Q15MIN ROUNDS FOR SAFETY AND BEHAVIOR.
[2022-03-17] MEDS: risperiDONE 1 MG TABLET PO SCH ×2 (13:19→17:35)
[2022-03-17] MEDS: DIVALPROEX SODIUM 500 MG TABLET.DR PO SCH ×2 (13:20→21:44)
[2022-03-17 16:00] VITALS: BP 127/96
--- NOTE | 2022-03-17 18:29 | NUR ---
Dr. Ferrer made aware of the consult
[2022-03-17] MEDS: HYDROCODONE/APAP 5/325MG TABLET PO PRN (19:41)
--- NOTE | 2022-03-17 19:53 | NUR ---
GPS RN NOTE: PAIN PATIENT C/O UPPER AND LOWER BACK PAIN 04/27, FACIAL GRIMACING, RESTLESS, GUARDING, UNCOMFORTABLE DUE TO PAIN AND REQUESTED TO TAKE "STRONG" PAIN MEDICINE, TYLENOL WAS OFFERED TO THE PATIENT AT FIRST BUT PER PATIENT," TYLENOL DOESN'T WORK FOR ME ANYMORE, I NEED SOMETHING STRONG TO HELP RELIEVE MY PAIN." PER PATIENT REQUEST NORCO 5-325 MG 1 TAB PO ADMINISTERED. VITALS SIGNS CHECKED AND WITHIN NORMAL LIMITS. WILL CONTINUE TO MONITOR FOR ANY CHANGE OF CONDITION.
[2022-03-17 20:05] VITALS: BP 113/58
[2022-03-17] MEDS: MIRTAZAPINE 15 MG TABLET PO SCH (22:32)
[2022-03-18 07:02] LABS: BASOPHILS # (AUTO) 0.1 K/uL (0.0-0.2); BASOPHILS % (AUTO) 1.4 % (0.0-2.0); EOSINOPHILS % (AUTO) 5.1 % (0.0-6.0); HEMATOCRIT 26 % (39-51); HEMOGLOBIN 8.5 g/dL (13.5-17.5); LYMPHOCYTES # (AUTO) 0.7 K/uL (0.8-4.8); MEAN CORPUSCULAR HGB CONC 33 g/dl (31.0-36.0); MEAN CORPUSCULAR VOLUME 81 fL (80-96); MONOCYTES # (AUTO) 0.4 K/uL (0.1-1.30); MONOCYTES % (AUTO) 11.4 % (2.0-12.0); NEUTROPHILS # (AUTO) 2.5 K/uL (1.8-8.9); NEUTROPHILS % (AUTO) 64.1 % (43.0-81.0); PLATELET COUNT (AUTO) 211 K/uL (150-450); RED BLOOD CELL COUNT(AUTO) 3.18 MIL/uL (4.5-6.0); WHITE BLOOD COUNT (AUTO) 3.9 K/uL (4.3-11.0)
[2022-03-18 07:17] LABS: IRON, SERUM 29 ug/dl (50-175); TOTAL IRON BINDING CAPACITY 317 ug/dl (250-450)
[2022-03-18 07:22] LABS: CALCIUM, SERUM 8.3 mg/dL (8.5-10.1); CREATININE 1.2 mg/dL (0.6-1.3); POTASSIUM 4.8 mmol/L (3.5-5.1)
[2022-03-18 07:30] LABS: FERRITIN 42 ng/mL (8-388)
[2022-03-18 08:00] VITALS: BP 121/65
[2022-03-18] MEDS: risperiDONE 1 MG TABLET PO SCH ×2 (08:40→16:09)
[2022-03-18] MEDS: DIVALPROEX SODIUM 500 MG TABLET.DR PO SCH ×2 (08:40→21:34)
[2022-03-18] MEDS: ENSURE ENLIVE CHOC 237 ML CAN PO SCH ×2 (08:43→16:10)
--- NOTE | 2022-03-18 09:00 | NUR ---
RN NOTE- RECEIVED PATIENT RESTING IN HIS BED. A/OX2. NO S/S OF ACUTE DISTRESS NOTED, EASILY GETS IRRITATED. AMBULATORY DAILY MEDS COMPLIANT ALL NEEDS ATTENDED AND ANTICIPATED. SAFETY PRECAUTIONS IN PLACE. WILL CONTINUE TO MONITOR Q15MIN ROUNDS FOR SAFETY AND BEHAVIOR.
[2022-03-18] MEDS: FERROUS SULFATE (325 MG) 325 MG/TAB TABLET PO SCH ×2 (12:15→16:09)
[2022-03-18] MEDS: HYDROCODONE/APAP 5/325MG TABLET PO PRN (12:29)
[2022-03-18 16:00] VITALS: BP 103/55
--- NOTE | 2022-03-18 19:15 | NUR ---
RN OPENING NOTES RECEIVED PATIENT ON BED, AWAKE, ALERT AND VERBALLY RESPONSIVE, ABLE TO AMBULATE BY HIMSELF. RESPIRATORY EVEN AND UNLABORED NO SOB NOTED. NOT IN DISTRESS. PATIENT IS HYPERVERBAL, TALKING TO HIMSELF, NEEDS TO REDIRECT MORE OFTEN, NOT AGITATED AT THIS TIME. ALL SAFETY MEASURE PROVIDED. CONTINUE TO MONITOR.
[2022-03-18 19:48] VITALS: BP 120/57
[2022-03-18] MEDS: ATORVASTATIN 10 MG TABLET PO SCH (21:34)
[2022-03-18] MEDS: MIRTAZAPINE 15 MG TABLET PO SCH (21:34)
[2022-03-18] MEDS: LORAZEPAM 1 MG TABLET PO PRN (23:37)
--- NOTE | 2022-03-18 23:38 | NUR ---
RN NOTES PATIENT IS ANXIOUS/AGITATED, UNABLE TO REDIRECT. ATIVAN 1MG GIVEN
[2022-03-19] MEDS: ZOLPIDEM TARTRATE 5 MG TABLET PO PRN ×2 (01:05→23:18)
--- NOTE | 2022-03-19 01:06 | NUR ---
RN NOTES PATIENT UNABLE TO SLEEP, REQUESTING FOR SLEEPING PILLS.
--- NOTE | 2022-03-19 05:15 | NUR ---
RN NOTES PATIENT REFUSED WEEKLY SKIN ASSESSMENT, EXPLAINED RISK AND BENEFITS, OFFERED 3X, STILL REFUSED.
--- NOTE | 2022-03-19 07:30 | NUR ---
RN NOTES RECEIVED PATIENT RESTING IN HIS BED. A/OX2. NO S/S OF ACUTE DISTRESS NOTED, EASILY GETS IRRITATED. AMBULATORY DAILY MEDS COMPLIANT ALL NEEDS ATTENDED AND ANTICIPATED. SAFETY PRECAUTIONS IN PLACE. WILL CONTINUE TO MONITOR Q15MIN ROUNDS FOR SAFETY AND BEHAVIOR.
--- NOTE | 2022-03-19 07:34 | NUR ---
RN NOTES PATIENT SLEEP WELL AT NIGHT, NO SOB NOTED, NOT IN DISTRESS. EASILY AGITATED, HYPERVERBAL. COMPLIANT WITH PO MEDS DURING GRAVEL SCREENER. SAFETY PRECAUTION PROVIDED.
[2022-03-19 08:00] VITALS: BP 125/63
--- NOTE | 2022-03-19 09:07 | NUR ---
FABY Initial Discharge Note: Patient currently resides at [place] [id number] ([phone]). FABY contacted Yudith Gordon ([phone]) to see if pt is welcomed back, she will consult with DON and will let this comic writer know. FABY will work with the MD, treatment team, and family to help coordinate appropriate discharge.
--- NOTE | 2022-03-19 09:29 | NUR ---
FABY Family Contact: SW contacted patient's daughter Myriam ([phone]) and left a detailed voicemail of admission and treatment plan/discharge plan.
[2022-03-19] MEDS: risperiDONE 1 MG TABLET PO SCH ×2 (09:34→17:24)
[2022-03-19] MEDS: FERROUS SULFATE (325 MG) 325 MG/TAB TABLET PO SCH ×2 (09:34→17:24)
[2022-03-19] MEDS: ENSURE ENLIVE CHOC 237 ML CAN PO SCH ×2 (09:34→17:25)
[2022-03-19] MEDS: DIVALPROEX SODIUM 500 MG TABLET.DR PO SCH ×2 (09:34→21:07)
--- NOTE | 2022-03-19 10:22 | NUR ---
Clinical Social Work: Patient currently placed on a 5150 hold for GD. Patient was verbally aggressive at his facility. Patient currently resides at [address] [address] ([phone]). FABY spoke with Yudith feng from [facility] ([phone]) who stated pt is welcomed back upon discharge. Patient's daughter Myriam ([phone]) has been notified, SW left a detailed voicemail.
--- NOTE | 2022-03-19 10:29 | NUR ---
Social Work Note/Substance Abuse Intervention: Patient was provided with a brief substance abuse intervention and referred to [facility] ([phone]), [facility] ([phone]), and [facility] ([phone]). Laboratory was found positive for opiates. Pt denies any use of drugs, alcohol, or smoking cigarettes.
--- NOTE | 2022-03-19 14:08 | NUR ---
GPS RN NOTE: 14 DAYS HOLD WAS SERVED AND EXPLAIN TO PATIENT.PATIENT VERBALIZED UNDERSTANDING
[2022-03-19 16:00] VITALS: BP 126/62
--- NOTE | 2022-03-19 18:22 | NUR ---
RN NOTES ALL NEEDS ATTENDED AND MET AT THIS TIME. PATIENT COMPLIANT WITH ALL MEDICATIONS. STABLE
--- NOTE | 2022-03-19 18:23 | NUR ---
RN NOTES PER DR. RAYRAY GUERRA - FOR CEA, BMP,CBC,LDH IN AM
--- NOTE | 2022-03-19 19:25 | NUR ---
GPS RN NOTES PATIENT PACING IN THE HALLWAY. ALERT AND ORIENTED X3. NO S/SX OF ACUTE DISTRESS NOTED. PATIENT REMAINS ANXIOUS, LABILE, HYPERVERBAL, EASILY GETS IRRITATED, NEEDS FREQUENT REDIRECTION. DENIES SI/HI/AVH AT THIS TIME. SAFETY PRECAUTIONS IN PLACE. WILL CONTINUE TO MONITOR Q15MIN ROUNDS FOR SAFETY AND BEHAVIOR.
[2022-03-19 19:54] VITALS: BP 118/57
[2022-03-19] MEDS: MIRTAZAPINE 15 MG TABLET PO SCH (21:06)
[2022-03-19] MEDS: ATORVASTATIN 10 MG TABLET PO SCH (21:06)
[2022-03-19] MEDS: HYDROCODONE/APAP 5/325MG TABLET PO PRN (21:26)
[2022-03-20] MEDS: LORAZEPAM 1 MG TABLET PO PRN (01:03)
[2022-03-20 07:04] LABS: BASOPHILS % (AUTO) 1.1 % (0.0-2.0); EOSINOPHILS % (AUTO) 5.9 % (0.0-6.0); HEMATOCRIT 28 % (39-51); LYMPHOCYTES # (AUTO) 0.7 K/uL (0.8-4.8); LYMPHOCYTES % (AUTO) 20.2 % (20.0-44.0); MEAN CORPUSCULAR HGB CONC 32 g/dl (31.0-36.0); MEAN CORPUSCULAR VOLUME 80 fL (80-96); MONOCYTES # (AUTO) 0.4 K/uL (0.1-1.30); MONOCYTES % (AUTO) 10.6 % (2.0-12.0); NEUTROPHILS # (AUTO) 2.2 K/uL (1.8-8.9); NEUTROPHILS % (AUTO) 62.2 % (43.0-81.0); PLATELET COUNT (AUTO) 216 K/uL (150-450); RED BLOOD CELL COUNT(AUTO) 3.52 MIL/uL (4.5-6.0); WHITE BLOOD COUNT (AUTO) 3.6 K/uL (4.3-11.0)
[2022-03-20 07:21] LABS: CALCIUM, SERUM 8.8 mg/dL (8.5-10.1); CARBON DIOXIDE 26 mmol/L (21-32); CHLORIDE 106 mmol/L (98-107); CREATININE 1.5 mg/dL (0.6-1.3); GLUCOSE 138 mg/dL (74-106); SODIUM SERUM 139 mmol/L (136-145); UREA NITROGEN, BLOOD 47 mg/dL (7-18)
[2022-03-20 08:00] VITALS: BP 130/68
[2022-03-20] MEDS: ENSURE ENLIVE CHOC 237 ML CAN PO SCH ×2 (08:00→16:42)
[2022-03-20] MEDS: FERROUS SULFATE (325 MG) 325 MG/TAB TABLET PO SCH ×2 (09:07→16:33)
[2022-03-20] MEDS: DIVALPROEX SODIUM 500 MG TABLET.DR PO SCH ×2 (09:07→21:47)
[2022-03-20] MEDS: risperiDONE 1 MG TABLET PO SCH ×2 (09:07→16:33)
[2022-03-20 16:00] VITALS: BP 109/54
[2022-03-20] MEDS: HYDROCODONE/APAP 5/325MG TABLET PO PRN (16:34)
--- NOTE | 2022-03-20 19:10 | NUR ---
GPS RN NOTES PATIENT RESTING IN BED. ALERT AND ORIENTED X2. NOT IN ACUTE DISTRESS. PATIENT REMAINS LABILE, HYPERVERBAL. NEEDS FREQUENT REDIRECTION. SAFETY PRECAUTIONS IN PLACE. WILL CONTINUE TO MONITOR. DUE MEDICATIONS TAKEN.
--- NOTE | 2022-03-20 19:18 | NUR ---
GPS RN NOTES PATIENT IN BED AWAKE, ALERT AND ORIENTED X2. NO S/SX OF ACUTE DISTRESS NOTED. PATIENT REMAINS ANXIOUS, ARGUMENTATIVE, NEEDY, LABILE, HYPERVERBAL, EASILY GETS IRRITATED, NEEDS FREQUENT REDIRECTION. NO VERBALIZATION OF THOUGHTS AND FEELINGS. SAFETY PRECAUTIONS IN PLACE. WILL CONTINUE TO MONITOR Q15MIN ROUNDS FOR SAFETY AND BEHAVIOR.
[2022-03-20 20:01] VITALS: BP 137/80
[2022-03-20] MEDS: QUETIAPINE FUMARATE 25 MG TABLET PO SCH (21:47)
[2022-03-20] MEDS: ATORVASTATIN 10 MG TABLET PO SCH (21:47)
[2022-03-21] MEDS: HYDROCODONE/APAP 5/325MG TABLET PO PRN (00:46)
[2022-03-21] MEDS: LORAZEPAM 1 MG TABLET PO PRN ×2 (02:37→12:54)
[2022-03-21 08:00] VITALS: BP 120/71
[2022-03-21] MEDS: ENSURE ENLIVE CHOC 237 ML CAN PO SCH ×2 (08:27→17:09)
[2022-03-21] MEDS: risperiDONE 1 MG TABLET PO SCH ×2 (08:28→17:08)
[2022-03-21] MEDS: FERROUS SULFATE (325 MG) 325 MG/TAB TABLET PO SCH ×2 (08:28→17:08)
[2022-03-21] MEDS: DIVALPROEX SODIUM 500 MG TABLET.DR PO SCH ×2 (08:29→21:21)
--- NOTE | 2022-03-21 09:40 | NUR ---
SW Court Notification: SW contacted patient's daughter Myriam ([phone]) and notified of pt's 5250 hearing today.
--- NOTE | 2022-03-21 09:44 | NUR ---
FABY Family Contact: SW contacted patient's daughter Myriam ([phone]) and she reported that she would want pt back to [facility].
--- NOTE | 2022-03-21 09:45 | NUR ---
SNF Contact: SW received a call from Yudith Gordon ([phone]) who stated pt is welcomed back upon dc.
--- NOTE | 2022-03-21 10:28 | NUR ---
Court Hearing: Patient's court hearing was today and it was upheld for GD.
--- NOTE | 2022-03-21 11:09 | NUR ---
SNF Referral: FABY sent clinicals to Abelardo Gordon ([phone]) ([phone]) for placement option. FABY sent H & P, progress notes, and medication list.
--- NOTE | 2022-03-21 13:12 | NUR ---
RN-NOTES NOTED PATIENT IRRITABLE,ARGUMENTATIVE WITH THE STAFF ,PACING IN THE HALLWAY. ATIVAN 1MG P.O GIVEN ORDER. WILL CONT. MONITORING FOR SAFETY AND BEHAVIOR.
--- NOTE | 2022-03-21 14:15 | NUR ---
RN-NOTES PATIENT LYING IN BED AWAKE,ALERT CALM,NO ACUTE DISTRESS NOTED.
--- NOTE | 2022-03-21 15:56 | NUR ---
Individual Counseling: SW met with pt. at bedside to conduct individual check in. The pt. was calm & cooperative throughout discussion. pt. stated from 1 being the worst and 10 being the best he is feeling at an 8. Pt. appears to have euthymic mood & affect at this time. Pt. discussed support system: per pt., he has a daughter who he is in communication with and is supportive. SW acknowledged the importance of familial relationships. SW encouraged pt. to use his words to express feelings and encouraged venting. Pt. was agreeable.
[2022-03-21 16:00] VITALS: BP 113/64
--- NOTE | 2022-03-21 17:35 | NUR ---
RN-NOTES PATIENT AMBULATING IN THE HALLWAY X2. NO S/SX OF ACUTE DISTRESS NOTED. COMPLIANT WITH MEDICATIONS.NOTED PATIENT WITH FORGETFUL EASILY ANGRY AND DEMANDING BEHAVIOR. PATIENT FOCUS ON FOOD.AMBULATORY STEADY GAIT. ALL NEED ATTENDED AND ANTICIPATED.WILL CONT. MONITORING FOR SAFETY AND BEHAVIOR.WILL ENDORSE TO INCOMING NURSE FOR CONTINUITY OF CARE.
[2022-03-21 20:00] VITALS: BP 125/75
--- NOTE | 2022-03-21 20:15 | NUR ---
RN OPENING NOTES: RECEIVED PATIENT AWAKE IN BED, BED IN LOW POSITION, CALL LIGHTS WITHIN REACH, ON ROOM AIR NO SOB WAS OBSERVED, PATIENT IS AMBULATORY WALKS BACK AND FORTH ON THE HALLWAY APPEARS STABLE BUT ON CLOSE SUPERVISION, NO COMBATIVE BEHAVIOR WAS OBSERVED, PATIENT KEPT CLEAN AND DRY ALL NEEDS MET WILL CONTINUE TO MONITOR.
[2022-03-21] MEDS: QUETIAPINE FUMARATE 25 MG TABLET PO SCH (21:22)
[2022-03-21] MEDS: ATORVASTATIN 10 MG TABLET PO SCH (21:22)
--- NOTE | 2022-03-22 06:37 | NUR ---
RN CLOSING NOTES; PATIENT SLEEP IN BED COMFORTABLY, BED IN LOW POSITION, ON ROOM AIR SATURATING WELL, NO SOB WAS OBSERVED, NO CHANGES IN BEHAVIOR WAS OBSERVED, PATIENT IS AMBULATORY UNSTEADY WITH SUPERVISION, KEPT CLEAN AND DRY ALL NEEDS MET ENDORSE TO INCOMING SHIFT
[2022-03-22 08:00] VITALS: BP 113/64
--- NOTE | 2022-03-22 08:15 | NUR ---
SNF Contact: SW received a call from Belem admin from [facility] ([phone]) who stated pt is accepted.
[2022-03-22] MEDS: DIVALPROEX SODIUM 500 MG TABLET.DR PO SCH ×2 (08:37→20:04)
[2022-03-22] MEDS: ENSURE ENLIVE CHOC 237 ML CAN PO SCH ×2 (08:37→16:29)
[2022-03-22] MEDS: FERROUS SULFATE (325 MG) 325 MG/TAB TABLET PO SCH ×2 (08:37→16:28)
[2022-03-22] MEDS: risperiDONE 1 MG TABLET PO SCH ×2 (08:38→16:28)
[2022-03-22 16:00] VITALS: BP 113/70
--- NOTE | 2022-03-22 18:01 | NUR ---
RN-NOTES PATIENT LYING IN BED A/O X2. NO S/SX OF ACUTE DISTRESS NOTED. COMPLIANT WITH MEDICATIONS.NOTED PATIENT WITH FORGETFUL EASILY ANGRY AND DEMANDING BEHAVIOR. PATIENT FOCUS ON FOOD AND COFFEE.AMBULATORY STEADY GAIT. ALL NEED ATTENDED AND ANTICIPATED.PATIENT REFUSED LAB DRAW THIS SHIFT DESPITE FEW ATTEMPTS WILL CONT. MONITORING FOR SAFETY AND BEHAVIOR.WILL ENDORSE TO INCOMING NURSE FOR CONTINUITY OF CARE.
[2022-03-22] MEDS: LORAZEPAM 1 MG TABLET PO PRN (20:40)
--- NOTE | 2022-03-22 20:42 | NUR ---
RN NOTES : ANXIETY PT. C/O FEELING ANXIOUS , RESTLESS, SCRAMING YELLING PRN ATIVAN 1 MG PO GIVEN , WILL CONTINUE TO MONITOR.
[2022-03-22] MEDS: ATORVASTATIN 10 MG TABLET PO SCH (21:32)
[2022-03-22] MEDS: QUETIAPINE FUMARATE 25 MG TABLET PO SCH (21:32)
[2022-03-22 21:39] VITALS: BP 121/68
--- NOTE | 2022-03-23 01:03 | NUR ---
RN NOTES PATIENT RESTING IN BED . NO S/SX OF ACUTE DISTRESS NOTED, ARGUMENTATIVE, NEEDY, LABILE, HYPERVERBAL, EASILY GETS IRRITATED,MED COMPLIANT , FOCUS ON FOOD, NEEDS FREQUENT REDIRECTION. NO VERBALIZATION OF THOUGHTS AND FEELINGS. SAFETY PRECAUTIONS IN PLACE. WILL CONTINUE TO MONITOR Q15MIN ROUNDS FOR SAFETY AND BEHAVIOR.
--- NOTE | 2022-03-23 07:10 | NUR ---
RN NOTES; COLLECT URINE SPECIMEN AND SEND TO LAB.
[2022-03-23 07:36] LABS: BASOPHILS % (AUTO) 1.1 % (0.0-2.0); EOSINOPHILS % (AUTO) 5.5 % (0.0-6.0); HEMATOCRIT 26 % (39-51); HEMOGLOBIN 8.5 g/dL (13.5-17.5); LYMPHOCYTES # (AUTO) 0.6 K/uL (0.8-4.8); LYMPHOCYTES % (AUTO) 20.9 % (20.0-44.0); MEAN CORPUSCULAR HGB CONC 32 g/dl (31.0-36.0); MEAN CORPUSCULAR VOLUME 81 fL (80-96); MONOCYTES # (AUTO) 0.3 K/uL (0.1-1.30); MONOCYTES % (AUTO) 11.8 % (2.0-12.0); NEUTROPHILS # (AUTO) 1.8 K/uL (1.8-8.9); NEUTROPHILS % (AUTO) 60.7 % (43.0-81.0); PLATELET COUNT (AUTO) 183 K/uL (150-450); RED BLOOD CELL COUNT(AUTO) 3.27 MIL/uL (4.5-6.0)
[2022-03-23 08:00] VITALS: BP 130/74
[2022-03-23] MEDS: ENSURE ENLIVE CHOC 237 ML CAN PO SCH ×2 (08:19→17:06)
[2022-03-23 08:27] LABS: CALCIUM, SERUM 8.2 mg/dL (8.5-10.1); CARBON DIOXIDE 25 mmol/L (21-32); CHLORIDE 108 mmol/L (98-107); CREATININE 1.4 mg/dL (0.6-1.3); GLUCOSE 82 mg/dL (74-106); MAGNESIUM 2.1 mg/dL (1.8-2.4); PHOSPHORUS 4.5 mg/dL (2.5-4.9); POTASSIUM 4.7 mmol/L (3.5-5.1); SODIUM SERUM 140 mmol/L (136-145); UREA NITROGEN, BLOOD 44 mg/dL (7-18)
[2022-03-23] MEDS: risperiDONE 1 MG TABLET PO SCH ×2 (08:32→17:06)
[2022-03-23] MEDS: FERROUS SULFATE (325 MG) 325 MG/TAB TABLET PO SCH ×2 (08:32→17:06)
[2022-03-23] MEDS: DIVALPROEX SODIUM 500 MG TABLET.DR PO SCH ×2 (08:32→21:12)
[2022-03-23 16:00] VITALS: BP 112/56
--- NOTE | 2022-03-23 17:07 | NUR ---
RN-NOTES PATIENT LYING IN BED A/O X2. NO S/S OF ACUTE DISTRESS NOTED. COMPLIANT WITH MEDICATIONS.NOTED PATIENT WITH FORGETFUL EASILY ANGRY AND DEMANDING BEHAVIOR. PATIENT STILL NOTED FOCUS ON BOOST AND COFFEE. ALL NEED ATTENDED AND ANTICIPATED. WILL CONT. MONITORING FOR SAFETY AND BEHAVIOR.WILL ENDORSE TO INCOMING NURSE FOR CONTINUITY OF CARE.
--- NOTE | 2022-03-23 19:51 | NUR ---
RN-NOTES PATIENT RESTING IN HIS ROOM NO S/S OF ACUTE DISTRESS NOTED. EASILY AGITATED , PARANOID CONFUSED FORGETFUL ,DISHELVED, NEEDY, HYPERVERBAL, DEMANDING BEHAVIOR. FOCUS ON FOOD, COFFEE. ALL NEED ATTENDED AND ANTICIPATED. , ENCOURAGED TO VERBALIZED ANY FEELING OR CONCERN, WILL CONTINUE MONITORING Q15 FOR SAFETY AND BEHAVIOR.
[2022-03-23 20:00] VITALS: BP 118/67
[2022-03-23] MEDS: ATORVASTATIN 10 MG TABLET PO SCH (21:12)
[2022-03-23] MEDS: QUETIAPINE FUMARATE 25 MG TABLET PO SCH (21:12)
[2022-03-23] MEDS: LORAZEPAM 1 MG TABLET PO PRN (22:13)
--- NOTE | 2022-03-23 22:14 | NUR ---
RN NOTES: ANXIETY PT. C/O FEELING ANXIOUS , RESTLESS, SCRAMING YELLING PRN ATIVAN 1 MG PO GIVEN , WILL CONTINUE TO MONITOR.
[2022-03-24 07:44] LABS: BASOPHILS % (AUTO) 0.7 % (0.0-2.0); EOSINOPHILS % (AUTO) 5.4 % (0.0-6.0); HEMATOCRIT 29 % (39-51); HEMOGLOBIN 9.5 g/dL (13.5-17.5); LYMPHOCYTES # (AUTO) 0.7 K/uL (0.8-4.8); LYMPHOCYTES % (AUTO) 19.3 % (20.0-44.0); MEAN CORPUSCULAR HGB CONC 32 g/dl (31.0-36.0); MEAN CORPUSCULAR VOLUME 81 fL (80-96); MONOCYTES # (AUTO) 0.3 K/uL (0.1-1.30); MONOCYTES % (AUTO) 9.8 % (2.0-12.0); NEUTROPHILS # (AUTO) 2.3 K/uL (1.8-8.9); NEUTROPHILS % (AUTO) 64.8 % (43.0-81.0); PLATELET COUNT (AUTO) 203 K/uL (150-450); RED BLOOD CELL COUNT(AUTO) 3.64 MIL/uL (4.5-6.0); WHITE BLOOD COUNT (AUTO) 3.5 K/uL (4.3-11.0)
[2022-03-24 08:00] VITALS: BP 130/78
[2022-03-24 08:02] LABS: CALCIUM, SERUM 8.6 mg/dL (8.5-10.1); CREATININE 1.3 mg/dL (0.6-1.3); MAGNESIUM 2.2 mg/dL (1.8-2.4); PHOSPHORUS 4.3 mg/dL (2.5-4.9)
[2022-03-24 08:07] LABS: IMMUNOGLOBULIN A, SERUM 155 mg/dL (61-437); IMMUNOGLOBULIN G, SERUM 1106 mg/dL (603-1613); IMMUNOGLOBULIN M, SERUM 80 mg/dL (15-143)
[2022-03-24] MEDS: ENSURE ENLIVE CHOC 237 ML CAN PO SCH ×2 (08:47→17:33)
[2022-03-24] MEDS: FERROUS SULFATE (325 MG) 325 MG/TAB TABLET PO SCH ×2 (08:47→17:24)
[2022-03-24] MEDS: DIVALPROEX SODIUM 500 MG TABLET.DR PO SCH ×2 (08:47→20:43)
[2022-03-24] MEDS: risperiDONE 1 MG TABLET PO SCH ×2 (08:47→17:24)
[2022-03-24] MEDS: LORAZEPAM 1 MG TABLET PO PRN (11:14)
--- NOTE | 2022-03-24 11:24 | NUR ---
given ativan for agitation.
[2022-03-24 16:00] VITALS: BP 137/79
--- NOTE | 2022-03-24 18:05 | NUR ---
quieter this afternoon.
[2022-03-24 20:16] VITALS: BP 123/74
[2022-03-24] MEDS: ATORVASTATIN 10 MG TABLET PO SCH (21:22)
[2022-03-24] MEDS: QUETIAPINE FUMARATE 25 MG TABLET PO SCH (21:22)
--- NOTE | 2022-03-25 06:31 | NUR ---
RN NOTES; COLLECT URINE SPECIMEN AND SEND TO LAB.
[2022-03-25 08:00] VITALS: BP 115/52
[2022-03-25] MEDS: ENSURE ENLIVE CHOC 237 ML CAN PO SCH ×2 (08:00→16:42)
[2022-03-25] MEDS: FERROUS SULFATE (325 MG) 325 MG/TAB TABLET PO SCH ×2 (09:39→16:37)
[2022-03-25] MEDS: DIVALPROEX SODIUM 500 MG TABLET.DR PO SCH ×2 (09:40→21:06)
[2022-03-25] MEDS: risperiDONE 1 MG TABLET PO SCH ×2 (09:40→16:37)
[2022-03-25 16:00] VITALS: BP 116/71
[2022-03-25] MEDS: HYDROCODONE/APAP 5/325MG TABLET PO PRN (16:37)
--- NOTE | 2022-03-25 16:37 | NUR ---
medicated with [place] 5/325 for generalize pain will continue to monitor .
[2022-03-25 20:11] VITALS: BP 105/59
[2022-03-25] MEDS: QUETIAPINE FUMARATE 25 MG TABLET PO SCH (21:05)
[2022-03-25] MEDS: ATORVASTATIN 10 MG TABLET PO SCH (21:05)
[2022-03-25] MEDS: LORAZEPAM 1 MG TABLET PO PRN (22:03)
--- NOTE | 2022-03-26 05:06 | NUR ---
RN GPS NOTE: ATTEMPTED TO GET U/A AND STOOL SAMPLE FROM PATIENT THIS SHIFT X3. UNSUCCESSFUL BECAUSE PATIENT WAS BEING UNCOOPERATIVE LEAVING A MESS OF LEFT OVER SNACKS ALL OVER HIS BED AND FLOOR WHILE DISROBING EXPOSING HIS PRIVATE AREA. PATIENT REQUIRING FREQUENT REDIRECTION OVER THE NIGHT.
[2022-03-26 08:00] VITALS: BP 113/77
[2022-03-26] MEDS: risperiDONE 1 MG TABLET PO SCH ×2 (08:41→16:13)
[2022-03-26] MEDS: DIVALPROEX SODIUM 500 MG TABLET.DR PO SCH ×2 (08:41→20:43)
[2022-03-26] MEDS: FERROUS SULFATE (325 MG) 325 MG/TAB TABLET PO SCH ×2 (08:41→16:13)
[2022-03-26] MEDS: ENSURE ENLIVE CHOC 237 ML CAN PO SCH ×2 (08:45→16:13)
--- NOTE | 2022-03-26 08:54 | NUR ---
FABY Family Contact: FABY contacted pt's daughter Myriam ([phone]) and left a detailed voicemail that pt will be discharged to [facility] on 03/27.
--- NOTE | 2022-03-26 09:00 | NUR ---
RN NOTE- PATIENT RESTING IN HIS ROOM NO S/S OF ACUTE DISTRESS NOTED. EASILY AGITATED , PARANOID CONFUSED FORGETFUL , NEEDY, DEMANDING BEHAVIOR. FOCUS ON FOOD, COFFEE. ALL NEEDS ATTENDED AND ANTICIPATED. , ENCOURAGED TO VERBALIZED ANY FEELING OR CONCERN, WILL CONTINUE MONITORING Q15 FOR SAFETY AND BEHAVIOR.
--- NOTE | 2022-03-26 09:24 | NUR ---
FABY Family Contact: SW contacted pt's daughter Myriam ([phone]) and she was agreeable of pt going to [facility].
[2022-03-26] MEDS: HYDROCODONE/APAP 5/325MG TABLET PO PRN (11:21)
[2022-03-26] MEDS: LORAZEPAM 1 MG TABLET PO PRN (14:57)
--- NOTE | 2022-03-26 14:57 | NUR ---
RN NOTE- RESTLESS ANXIOUS. ATIVAN 1 MG ADMINISTERED
[2022-03-26 16:00] VITALS: BP 105/70
[2022-03-26 16:07] LABS: *PEUR ALBUMIN Note: % (.)
[2022-03-26 19:41] VITALS: BP 120/57
[2022-03-26] MEDS: ATORVASTATIN 10 MG TABLET PO SCH (21:09)
[2022-03-26] MEDS: QUETIAPINE FUMARATE 25 MG TABLET PO SCH (21:09)
[2022-03-27] MEDS: HYDROCODONE/APAP 5/325MG TABLET PO PRN (01:32)
--- NOTE | 2022-03-27 07:43 | NUR ---
RN NOTE- PATIENT RESTING IN HIS ROOM NO S/S OF ACUTE DISTRESS NOTED. EASILY AGITATED , PARANOID CONFUSED FORGETFUL , NEEDY. ALL NEEDS ATTENDED AND ANTICIPATED. , ENCOURAGED TO VERBALIZED ANY FEELING OR CONCERN, WILL CONTINUE MONITORING Q15 FOR SAFETY AND BEHAVIOR.
--- NOTE | 2022-03-27 07:59 | NUR ---
SW Discharge Note: Patient will be discharged to [facility]F located at [address] [facility], . Please arrange ambulance transportation at 1PM. Realty Loan Specialist spoke with Heath Purification Supervisor ([phone]) who stated patient will be accepted at facility today. Patient is alert and oriented x2, and is not able to plan for self-care at this time, but is willing to accept care. Patient denies any suicidal or homicidal ideations. Patient is aware and agreeable with discharge plans. Patients daughter Myriam ([phone]) is aware and agreeable. Patient will continue to follow-up with her (Psychiatrist) Dr. Hwang [address], [place] [address]; and (Zipper Sewing Machine Operator) Dr. Britton [address] [address]; ([phone]). Patient presents with euthymic mood and congruent affect.
[2022-03-27 08:00] VITALS: BP 110/68
[2022-03-27] MEDS: risperiDONE 1 MG TABLET PO SCH (08:36)
[2022-03-27] MEDS: DIVALPROEX SODIUM 500 MG TABLET.DR PO SCH (08:36)
[2022-03-27] MEDS: ENSURE ENLIVE CHOC 237 ML CAN PO SCH (08:36)
[2022-03-27] MEDS: FERROUS SULFATE (325 MG) 325 MG/TAB TABLET PO SCH (08:36)
--- NOTE | 2022-03-27 10:00 | NUR ---
RN-CO: DR Vasquez seen and examined the patient this morning with orders to discontinue hold and discharge patient to SNF. Noted and carried out. Patient denied pain and discomforts, he denied auditory and visual hallucinations, denied suicidal and homicidal ideations. NO agitation noted this week. All belongings will be given back to the patient.Discharge Instructions were discussed and he verbalized understanding. Report will be given to receiving RN.
--- NOTE | 2022-03-27 13:34 | NUR ---
RN DC NOTE- PT DC AT THIS TIME TO [facility]. PT VS STABLE, ALERT ORIENTED TO PERSON PLACE TIME. PT DOES HAVE FORGETFULNESS AND CONFUSION AST TIMES. BELONGINGS RETURNED TO PT. ID [id number] REMOVED. REPORT ATTEMPTED TO BE PHONED TO FACILITY TWICE BUT THIS RN WAS PLACED ON HOLD AND NO ONE PICKED UP CALL. PT CLEARED TO FACILITY BY SW. ESCORTED OFF UNIT BY THIS RN
== END 2022-03-27 13:34 | DRG 885 ==
LOC: ER 12:39 → GPS 16:59
PROVIDERS: ADMIT Internal Medicine; ATTEND Psychiatry & Neurology Psychiatry
DX: F31.2 Bipolar disorder, current episode manic severe with psychotic features (principal); F01.51 Vascular dementia, unspecified severity, with behavioral disturbance; E43 Unspecified severe protein-calorie malnutrition; N18.9 Chronic kidney disease, unspecified; N17.9 Acute kidney failure, unspecified; N13.2 Hydronephrosis with renal and ureteral calculous obstruction; R64 Cachexia; F41.9 Anxiety disorder, unspecified; G89.4 Chronic pain syndrome; F29 Unspecified psychosis not due to a substance or known physiological condition; Z88.8 Allergy status to other drugs, medicaments and biological substances; Z79.899 Other long term (current) drug therapy; Z91.81 History of falling; E88.09 Other disorders of plasma-protein metabolism, not elsewhere classified; Z73.6 Limitation of activities due to disability; M19.90 Unspecified osteoarthritis, unspecified site; R53.1 Weakness; R27.8 Other lack of coordination; D50.9 Iron deficiency anemia, unspecified
CPT/HCPCS: 36415; 77075-TC; 80048-TC; 80061-TC; 80076-TC; 80164-TC; 82378; 82728-TC; 82784; 82962-TC; 83540-TC; 83615-TC; 83735-TC; 84100-TC; 84156; 84166; 85025-TC; 86334; 87081-TC; 97116-TC; 97530-TC; C9803; G0480